=== PATIENT | female | born 1940 | race Caucasian/White ===

== ENCOUNTER 2017-04-15 11:12 | Inpatient (IN) ==
--- NOTE | 2017-04-15 13:08 | Diag Imaging Result Doc PS360 ---
EXAM: ABDOMEN/PELVIS W/WO CONTRAST HISTORY: Female pelvic inflammatory disease, unspecified TECHNIQUE: CT of the abdomen and pelvis with and without intravenous contrast. COMMENT: Minimal atelectatic or fibrotic changes are present in the right lower lobe. There are no previous studies available for comparison. Multiple lucent lesions are present throughout the liver which are cystic in appearance. This may be a result of autosomal dominant polycystic disease. There is also a cyst in the upper pole of the right kidney measuring 3.4 cm in diameter. There is no evidence of nephrolithiasis. No cholelithiasis is present. There is scattered atherosclerotic calcification throughout the abdominal aorta and its branches. The mesenteric and renal arteries are patent. There is an accessory left renal artery. The spleen and adrenal glands are normal in appearance. The pancreas is unremarkable. There is a prominent left hemiazygos vein. There is no evidence of bowel obstruction. There is a fair amount of stool throughout the colon. CT of the pelvis with and without intravenous contrast: There is a multilobulated ring-enhancing fluid collection in the cul-de-sac. This measures over 8.3 cm in transverse dimension and has an internal CT density of over 25 Hounsfield units. There is diverticulosis in the sigmoid colon. There is a small amount of free fluid present outside of the loculated fluid collections. The ovaries are not enlarged. The urinary bladder is not distended. There is no evidence of significant adenopathy. There is degenerative change in the symphysis pubis. There are subchondral cysts in the right femoral head. There are degenerative disc and facet changes in the lumbar spine. There is an apparent hemangioma on the left side of L4. IMPRESSION: Pelvic abscess. This is directly adjacent to the rectum and the vaginal cuff. Given the history, it is more likely this is a result of the recent hysterectomy rather than diverticulitis. Electronically signed by Akhil Sharpe 04/15/2017 1:05 PM
--- NOTE | 2017-04-15 16:20 | CONSULTATION ---
DATE OF CONSULTATION: 04/15/2017 CONCLUSION: The patient has a pelvic abscess following a hysterectomy and vaginal closure performed by Dr. Gutierrez. RECOMMENDATIONS: I agree with treating the patient with Zosyn. The patient also already has a PICC in her arm. I have consulted Dr. Dom Alexander to see the patient regarding treatment of the abscess. DISCUSSION: The patient had surgery performed approximately a week ago, it may have been 1-2 weeks. She had fever and on CT scan she was found to have a pelvic abscess. The patient had a hysterectomy and vaginal closure performed. The patient has been on IV Zosyn and vancomycin provided by [facility]. PAST MEDICAL HISTORY/REVIEW OF SYSTEMS: Eyes and Ears: Denies difficulty hearing or seeing. Neck: No stiffness. Respiratory: No cough or shortness of breath. Cardiac: No chest pain or palpitations. : The patient is incontinent of urine. She is not complaining of dysuria or flank pain. GI: Patient has been having some loose stools since she started antibiotics but they are not watery and not numerous. She is not having nausea or vomiting. Endocrine: Patient is not a diabetic and she does not have thyroid disease. Hematologic: No history of anemia or bleeding tendency. Bones, joints, muscles: No joint aching or myalgia. Integument: No rash. POLISHER IMPLANT HISTORY: She is a 3, para 2, AB 1. PREVIOUS HOSPITALIZATIONS AND OPERATIONS: She has had labor and deliveries, a miscarriage, a hysterectomy, vaginal closure, left total knee arthroplasty, bilateral arm fractures, and an appendectomy. MEDICAL DISEASES: Positive for hypertension and urinary incontinence. INFECTIOUS DISEASE HISTORY: Positive for UTI. FAMILY HISTORY: Positive for hypertension and stroke. SOCIAL HISTORY: The patient lives in [place]. She is . ALLERGIES: She has no known drug allergies. She does not have any pets at home. MEDICATIONS AT HOME: Are not yet listed. PHYSICAL EXAMINATION: Vital Signs: Temperature is 99.3 degrees, pulse 103, respirations 16, blood pressure 164/57. O2 saturation was 98%. Patient weighs 132 pounds. General: This is a healthy-appearing, elderly female in no acute distress. Head, eyes, ears, nose, and throat: She can hear my spoken words and see near objects. No drainage noted from the nose or ears. Neck: No meningismus. Thorax: No increased AP diameter. Lungs: Clear to auscultation. Cardiovascular: Heart rate is regular. Peripheral pulses are palpable. Patient does not have any leg edema. Abdomen: Soft and nontender. No flank tenderness. Pelvic exam: Manually I just palpated the perineum, vaginal and perirectal area. There was no swelling or tenderness. Neurologic: Patient is alert. She moved all of her extremities. There is no tremor. Her sensation is intact to touch. Her memory, as regarding her medical history, is intact. Integument: No rash noted. Thank you for the consult. cc: MD Kev Maria MD Kari M. Kubik, MD
[2017-04-15 17:05] LABS: MANUAL DIFF NEEDED? NO
[2017-04-15 17:08] LABS: BASO% 0.3 % (0.0-0.8); EOS# 0.08 X1000 (0.0-0.7); EOS% 0.8 % (0.0-10.0); HEMATOCRIT 30.6 % (37.0-47.0); HEMOGLOBIN 9.6 g/dL (12.0-16.0); IMM GRAN# 0.04 X1000 (0.0-0.04); IMM GRAN% 0.4 % (0.0-0.5); LYMPH% 12.5 % (20.5-51.1); MCH 25.1 PG (27-31); MCHC 31.4 g/dL (33-37); MCV 80.1 FL (81-99); MONO# 0.67 X1000 (0.11-0.59); MONO% 6.5 % (1.7-9.3); MPV 10.4 FL (7.4-10.4); NEUT% 79.5 % (42.2-75.2); PLT 380 X1000 (130-400); RBC 3.82 XMIL (4.2-5.4)
[2017-04-15 17:14] LABS: INR 1.04
[2017-04-15 17:30] LABS: AGAP 14; ALBUMIN 3.3 g/dL (3.5-5.0); ALKALINE PHOSPHATASE 78 U/L (32-104); BUN 11 mg/dL (8-22); CALCIUM 8.7 mg/dL (8.8-10.2); CHLORIDE 95 mmol/L (98-107); COSMO 266; GOT 37 U/L (10-30); GPT 34 U/L (10-36); POTASSIUM 3.8 mmol/L (3.5-5.1); SODIUM 133 mmol/L (136-145); TCO2 24 mmol/L (25-35); TOTAL BILIRUBIN 0.23 mg/dL (0.20-1.00); TOTAL PROTEIN 6.9 g/dL (6.3-8.3)
--- NOTE | 2017-04-15 17:33 | CONSULTATION ---
DATE OF CONSULTATION: 04/15/2017 REQUESTING PHYSICIAN: Dr. Pastor Castillo. Consult concerning pelvic abscess. HISTORY OF PRESENT ILLNESS: A 76-year-old female who had a recent transvaginal hysterectomy done by Dr. Gutierrez. She developed what appears to be an abscess that was noted [address] scan after developing fevers at night. She had been started on antibiotics by Dr. Gutierrez but no drainage was performed on the abscess. She has continued to have issues with fever and was re-seen and re-evaluate today with a repeat CT scan that showed an increased size of the abscess. She was seen by Dr. Pastor Castillo in his office and sent to the hospital for admission. I was asked to evaluate the patient. The patient denies any abdominal pain at this time but does report fevers. Otherwise she has no major issues. PAST MEDICAL HISTORY: Includes hypertension, urinary incontinence. PAST SURGICAL HISTORY: Includes hysterectomy, transvaginal, left knee arthroplasty, appendectomy through an open incision. MEDICATIONS: Patient is currently on antibiotics. ALLERGIES: None. SOCIAL HISTORY: Lives in [place]. FAMILY HISTORY: Reviewed and positive for hypertension and stroke. REVIEW OF SYSTEMS: A full 10 point review of systems obtained, negative except as specified in HPI. PHYSICAL EXAMINATION: Vital Signs: Patient is currently with a fever of 100.6. Otherwise her vital signs are stable. General: No acute distress. Appears uncomfortable, female, looks stated age. HEENT: Normocephalic, atraumatic. Pupils equal, round, reactive to light. Mucous membranes moist. Oropharynx benign. Neck: Supple. Trachea midline. Cardiovascular: Regular rate and rhythm. Lungs: Grossly clear. Abdomen: Soft, nontender, nondistended. Extremities: Moves all extremities. Neurologic: Grossly intact. Skin: No signs of jaundice. Vascular: All extremities perfused. LABORATORY: None currently but currently pending. CT scan independently reviewed and reviewed with Dr. Sharpe with Radiology. There is a large abscess noted above her vaginal cuff next to her bladder and her rectum. ASSESSMENT AND PLAN: A 76-year-old female with a pelvic abscess. Pelvic abscess. At this time, discussed with the patient options. She does not appear septic at this time, so we will plan on laparoscopic washout in the morning. We will leave a drain. We will obtain cultures. Patient is on antibiotics. I suspect given the duration of her antibiotics this might be a sterile abscess but she is having fevers so this does need to be drained. She is also having frequency with urination which I suspect is related to the bladder being irritated by this abscess. This was all discussed with the patient. I discussed the risks, benefits, alternatives. We will plan again for surgery in the morning. cc: MD Kev Mendoza MD
[2017-04-15] MEDS: ZOSYN 3.375 GM/NS 3.375 GM/50 ML IVPB IV SCH ×2 (18:42→23:27)
[2017-04-15] MEDS ORDERED: ZOFRAN IV PRN (20:07)
[2017-04-15] MEDS: NS 1,000 ML IV SCH (20:55)
[2017-04-15] MEDS: TYLENOL PO PRN (20:55)
--- NOTE | 2017-04-15 20:58 | HISTORY AND PHYSICAL ---
PRIMARY CARE PHYSICIAN: Dr. Debbie Conroy. CHIEF COMPLAINT: Fever and pelvic abscess. HISTORY OF PRESENTING ILLNESS: A 76-year-old female with a history of hypertension, who apparently underwent hysterectomy on March 29 and shortly after that she developed fevers. She called her record cutter who had referred her to [facility] where she was admitted and put on IV antibiotics. The patient states that she went home. She has continued to have spiked fevers, and finely she made an appointment to see Infectious Disease doctor, Dr. Castillo who ordered a CAT scan. CAT scan apparently revealed a pelvic abscess and subsequently the patient was told to come to the hospital for admission. At the time of my examination, patient had denied any nausea, vomiting, diarrhea, chest pain, shortness of breath, hemoptysis, melena or weight changes. She does complain of having fevers and not feeling well. PAST MEDICAL HISTORY: Hypertension. PAST SURGICAL HISTORY: Hysterectomy. Left knee replacement. Bilateral arm surgery. Appendectomy. Cataract surgery. ALLERGIES: No known drug allergies. CURRENT MEDICATIONS: As listed in MAR. SOCIAL HISTORY: She denies any history of smoking, alcohol or illicit drug use. She is fairly independent. FAMILY HISTORY: No history of coronary artery disease. REVIEW OF SYSTEMS: Twelve point review of systems is as listed in HPI. Other systems negative. PHYSICAL EXAMINATION: GENERAL: Cooperative, friendly female. She is resting comfortably now. VITAL SIGNS: Temperature 100.6 degrees, pulse 89, respirations 16, blood pressure 130/49. HEENT: Atraumatic, normocephalic. Extraocular movements intact. PERRLA. NECK: Supple. CHEST: Clear to auscultation. CARDIOVASCULAR: Regular rate and rhythm. ABDOMEN: Soft, nontender. Positive bowel sounds. EXTREMITIES: No edema. NEUROLOGIC: She is awake, alert, oriented x3. : No bladder distention. SKIN: Warm. LABORATORIES: WBC 10.37, hemoglobin 9.6, hematocrit 30.6, platelets is 380,000. Sodium 133, potassium 3.8, chloride 95, CO2 is 24, BUN is 11, creatinine 0.7, glucose is 98. ASSESSMENT: This is a 76-year-old female with a history of hypertension, apparently had underwent a hysterectomy and subsequently had developed fevers. She was evaluated by Infectious Disease who ordered computed tomography scan which showed that patient had a pelvic abscess. Subsequently patient will need hospitalization for surgical evaluation. 1. Pelvic abscess. 2. Hypertension. PLAN: 1. We will admit patient to medical floor with telemetry. 2. We will keep patient nothing per oral, give intravenous fluids, pain control and Tylenol p.r.n. fever. 3. We will check blood cultures. 4. We will start patient on intravenous antibiotics. 5. Consult General Surgery who apparently has already seen patient. 6. We will monitor blood pressure. Resume antihypertensive agent. 7. Put patient on deep venous thrombosis prophylaxis with Sequential Compression Devices. 8. We will continue to follow and reassess. cc: MD Kev He MD
[2017-04-15 22:40] LABS: URINE CULTURE NEEDED? NO; URINE MICRO REVIEW NEEDED? NO; URINE SOURCE CLEAN CATCH
[2017-04-15 22:43] LABS: BILIRUBIN URINE NEGATIVE (NEGATIVE); BLOOD URINE NEGATIVE (NEGATIVE); COLOR STRAW; GLUCOSE URINE NEGATIVE (NEGATIVE); LEUKOCYTES URINE NEGATIVE (NEGATIVE); NITRITE URINE NEGATIVE (NEGATIVE); PROTEIN URINE NEGATIVE (NEGATIVE); SP GRAVITY URINE 1.009; TURBIDITY URINE CLEAR (CLEAR); UROBILINOGEN URINE NORMAL (NORMAL)
[2017-04-15 22:45] LABS: UR EPITHELIAL CELLS <10 /HPF (<10); URINE BACTERIA NEGATIVE /HPF; URINE RBC <10 /HPF (<10); URINE WBC <10 /HPF (<10)
[2017-04-16] MEDS: ZOSYN 3.375 GM/NS 3.375 GM/50 ML IVPB IV SCH ×2 (05:19→12:31)
--- NOTE | 2017-04-16 06:28 | PROGRESS NOTE ---
DATE: 04/16/2017 SUBJECTIVE: Patient doing okay. No major issues. OBJECTIVE: Vital Signs: Patient's temperature max of 100.6; otherwise her vital signs have been stable. General: No acute distress. Cardiovascular: Regular rate and rhythm. Lungs: Grossly clear. Abdomen: Soft, nontender, nondistended. LABORATORY: None this morning. ASSESSMENT AND PLAN: A 76-year-old female with pelvic abscess. Pelvic abscess: At this time, we will plan on surgical intervention with wash out this morning. I did discuss her case with Dr. Gutierrez over the phone. All questions were answered for the patient. We will plan for later today. cc: MD Kev Mendoza MD
[2017-04-16] MEDS ORDERED: VERSED ONE (09:38)
[2017-04-16] MEDS ORDERED: MARCAINE 0.25% PF/EPI 1:200,000 ONE (09:56)
[2017-04-16] MEDS ORDERED: XYLOCAINE 1%/EPI 1:100,000 ONE (09:56)
[2017-04-16] MEDS ORDERED: FENTANYL ONE (11:16)
[2017-04-16] MEDS ORDERED: DIPRIVAN 1% ONE (11:16)
[2017-04-16] MEDS: MORPHINE ONE ×2 (11:29→11:45)
--- NOTE | 2017-04-16 11:29 | OPERATIVE NOTE ---
PROCEDURE DATE: 04/16/2017 PREOPERATIVE DIAGNOSIS: Pelvic abscess. POSTOPERATIVE DIAGNOSIS: Pelvic abscess. PROCEDURE: Laparoscopic abdominal washout with placement of abdominal drain. SURGEON: Dr. Dom Alexander. POLYSOMNOGRAPHIC TECHNOLOGIST: None. ANESTHESIA: General endotracheal. INTRAOPERATIVE FINDINGS: There was 50 mL of purulence noted down in the pelvis posterior to the bladder. There was a dense rind associated with this abscess and very friable tissue down in the pelvis. COMPLICATIONS: None at time of dictation. ESTIMATED BLOOD LOSS: 5 mL. SPECIMENS REMOVED: Culture of the purulence. DRAINS: A 19-Niuean drain left in the abscess cavity. BRIEF HISTORY: The patient is a 76-year-old female, status post transvaginal hysterectomy. She had a postoperative course that was complicated by an abscess and was treated initially with antibiotics and did not improve. Therefore, she was admitted for surgical opinion and it was felt that she would benefit from a drainage. I felt that the safest approach would be a laparoscopic approach. Risks, benefits, and alternatives were discussed. All questions were answered. DESCRIPTION OF PROCEDURE: After informed consent was obtained, patient brought to the operative theatre and placed on the operating table in supine position. General endotracheal anesthesia was then performed without complication. A formal time-out was then performed, confirming patient, date, and procedure. All were in agreement. At that time, attention was given to the abdomen. An infraumbilical incision was made, through which, using Optiview technique, we were able to insert a 5 mm trocar connected to insufflation and pneumoperitoneum was achieved. Under direct visualization, we placed 2 more trocars, both 5 mm, 1 in the left lower quadrant and 1 in the right lower quadrant. Using these, there were some adhesions from a previous appendectomy that were taken down sharply. We then encountered the pelvis. We placed the patient in steep Trendelenburg position and elevated the bladder. We then were able to puncture gently into a rind and were able to encounter purulence, which we suctioned and sent for culture. We broke up all loculations that we were able to do safely bluntly in the area. Given the dense inflammatory process and her recent surgery, I did not get too aggressive in breaking down the rind itself for fear of potentially injuring surrounding tissues that would not be able to be well visualized, given the inflammation. Once we irrigated the area copiously until the suction fluid was clear, we elected to place a drain, which we placed in the most lateral trocar site on the left side, placed it into the abscess cavity and secured it in place, then removed all trocars and disconnected insufflation. The patient tolerated the procedure well and had all her skin incisions closed with 4-0 Monocryl. Postoperatively, she will be managed by the Infectious Disease. cc: Dom Alexander MD
--- NOTE | 2017-04-16 13:10 | PROGRESS NOTE ---
DATE: 04/16/2017 Today Ms. Ocasio referred to be doing fine. Still continues to have some discomfort. She is scheduled for surgery today. OBJECTIVE: Vital Signs: Blood pressure is 142/62, pulse of 81, respirations 20, temperature is 98.5 degrees. General: Ms. Ocasio is a 76-year-old female. She was in bed and did not seem to be in any remarkable distress. HEENT: Mucosa is pink and moist. Anicteric. Acyanotic. Neck: Supple. Chest: Clear. Cardiovascular: Regular rate and rhythm. No murmurs, no rubs. No gallops. Abdomen: Soft. Mildly tender in the lower abdomen. SUPERVISOR BREW HOUSE: Patient was alert and oriented x4. No focal neurological deficit. LABORATORY DATA: WBC 10.37, hemoglobin 9.6, platelet count of 380,000. Chemistry is reviewed. Sodium is 133, potassium is 3.8, chloride is 95. CURRENT MEDICATIONS INCLUDE: 1. [place] p.r.n. 2. Amlodipine 10 mg daily. 3. Lipitor 40 mg p.o. at bedtime. 4. Cozaar 25 mg daily. 5. Zofran 3.375 g q.6. 6. Normal saline at 80 mL/h. ASSESSMENT: 1. Pelvic abscess status post recent hysterectomy. Patient is pending laparoscopic evaluation and possible drainage and washout. 2. Hypertension. Will get more aggressive in the control once after the surgery. 3. Dyslipidemia. Patient is on atorvastatin. 4. Mild hyponatremia likely due to dehydration. We will continue with the IV fluids. 5. Normocytic anemia. I think this has slightly worsened because of hydration. Will however do her iron studies for tomorrow since MCV is on the borderline low. cc: Kev Watt MD
[2017-04-16] MEDS ORDERED: NEOSTIGMINE ONE (13:13)
[2017-04-16] MEDS ORDERED: ZOFRAN ONE (13:13)
[2017-04-16] MEDS ORDERED: ROBINUL ONE (13:13)
[2017-04-16] MEDS ORDERED: LR 2,000 ML ONE (13:14)
[2017-04-16] MEDS ORDERED: NIMBEX 2 MG DOSE ONE (13:14)
[2017-04-16] MEDS ORDERED: DECADRON ONE (13:14)
[2017-04-16] MEDS ORDERED: QUELICIN (DOSE) ONE (13:14)
[2017-04-16] MEDS ORDERED: XYLOCAINE-MPF 2% ONE (13:14)
[2017-04-16] MEDS ORDERED: VANCOMYCIN IV PER PHARMACY MISC SCH (13:45)
[2017-04-16 14:16] LABS: INR 1.03; PROTIME 10.8 Seconds (9.2-11.7)
--- NOTE | 2017-04-16 14:22 | PROGRESS NOTE ---
DATE: 04/16/2017 PRESENT ILLNESS: The patient has a pelvic abscess following hysterectomy and vaginal closure performed by Dr. Gutierrez. MEDICATIONS: The patient has been receiving Zosyn. PHYSICAL EXAMINATION: Vital Signs: Temperature is 98 degrees, pulse 78, respirations 22, blood pressure 136/55. General: This is a somewhat ill-appearing, elderly female. She is in no acute distress. Lungs: Clear to auscultation. Cardiovascular: Regular heart rate. Abdomen: Soft and nontender. A drain is in place. LAB AND X-RAY: The patient's CBC shows a white count of 10,370, hemoglobin 9.6, and platelet count 380,000. Creatinine 0.7. GFR is greater than 60. Gram stain of the fluid obtained after putting a drain in it percutaneously has gram positive cocci. The patient had as mentioned above laparoscopic washout and drain has been placed in the pelvic abscess. PLAN: My plan is to change the patient's antibiotic from Zosyn to vancomycin pending culture results. COMORBIDITY: She recently had surgery and she is elderly. cc: Pastor Castillo MD
[2017-04-16] MEDS ORDERED: NS 250 ML ONE (14:38)
[2017-04-16] MEDS ORDERED: VANCOMYCIN 1,500 MG in NS 250 ML IV ONE (15:00)
[2017-04-16] MEDS: NS 1,000 ML IV SCH (17:29)
[2017-04-16] MEDS: NORVASC PO SCH (17:38)
[2017-04-16] MEDS: COZAAR PO SCH (17:38)
[2017-04-16] MEDS: NORCO-10 PO PRN (19:05)
[2017-04-16] MEDS: LIPITOR PO SCH ×2 (19:46→21:59)
[2017-04-16] MEDS: KLOR-CON PO SCH ×2 (19:46→21:59)
[2017-04-16] MEDS: PERIDEX MT SCH ×2 (19:46→21:59)
[2017-04-17 06:18] LABS: IRON SATURATION 10 %; TIBC 238 ug/dL; TOTAL IRON 23 ug/dL (49-151); UNBOUND IRON 215 ug/dL (112-346)
[2017-04-17 06:26] LABS: VITAMIN D 25 HYDROXY 32.7 NG/DL
[2017-04-17] MEDS: NORVASC PO SCH (10:44)
[2017-04-17] MEDS: KLOR-CON PO SCH ×2 (10:44→20:05)
[2017-04-17] MEDS: COZAAR PO SCH (10:44)
[2017-04-17] MEDS: PERIDEX MT SCH ×2 (10:44→20:05)
[2017-04-17] MEDS: NS 1,000 ML IV SCH ×2 (10:47→10:49)
[2017-04-17] MEDS: NORCO-10 PO PRN ×2 (11:08→17:20)
--- NOTE | 2017-04-17 15:00 | PROGRESS NOTE ---
DATE: 04/17/2017 Today Ms. Ocasio refers to be doing a lot better. She is day 1 postop. OBJECTIVE: Vital signs: Blood pressure is 124/65, pulse of 79, respirations 16 , temperature is 98.5 degrees. General exam: Ms. Ocasio is a 76-year-old, female. She is in bed, does not seems to be in any remarkable distress except where she had the surgery. HEENT: Mucosa is pink and moist. Anicteric. Acyanotic. Neck: Supple. Chest: Good air entry bilateral. Cardiovascular: Regular rate and rhythm. There is about 2-3/6 murmur radiating to the carotid. Abdomen: Soft, mildly distended in the lower abdomen. There is a NIKKI drain in place. Bowel sounds are present. Extremities: No pedal edema. LIVING NURSE: Patient is alert and oriented x4. There is no focal neurological deficit. LABORATORY DATA: There is no CBC and no CMP today. Iron studies show a ferritin level of 65, folate of 14.4. Percent saturation is 10 and iron is 23. Antibiotic was changed yesterday from Zosyn to vancomycin. Abdominal culture is growing gram-positive cocci. We are still pending the ID and sensitivity. ASSESSMENT: 1. Pelvic abscess after recent hysterectomy. Patient had laparoscopic lavage by Surgery yesterday. Today is day 1 post lavage. She seems to be doing a whole lot better. So far, the culture shows gram-positive cocci. Patient is on vancomycin. We will continue following the ID and sensitivity. 2. Hypertension. 3. Dyslipidemia. 4. Iron deficiency. We will replace this once the infection is completely under control. We will repeat patient's labs for tomorrow morning and follow on her CBC and her electrolytes. The patient was evaluated today also by Surgery. Has been started on regular diet. cc: MD ASAD Crowe
[2017-04-17] MEDS: TYLENOL PO PRN (20:05)
[2017-04-17] MEDS: LIPITOR PO SCH (20:05)
[2017-04-18] MEDS: NS 1,000 ML IV SCH ×3 (02:56→22:20)
[2017-04-18] MEDS ORDERED: VANCOMYCIN 1,200 MG in NS 250 ML IV SCH (03:00)
[2017-04-18 05:19] LABS: MANUAL DIFF NEEDED? NO
[2017-04-18 05:29] LABS: BASO% 0.1 % (0.0-0.8); EOS% 0.9 % (0.0-10.0); HEMATOCRIT 31.3 % (37.0-47.0); HEMOGLOBIN 9.7 g/dL (12.0-16.0); IMM GRAN# 0.04 X1000 (0.0-0.04); IMM GRAN% 0.3 % (0.0-0.5); LYMPH# 2.29 X1000 (1.2-3.4); MCH 24.9 PG (27-31); MCV 80.3 FL (81-99); MONO# 0.47 X1000 (0.11-0.59); MONO% 4.1 % (1.7-9.3); MPV 10.5 FL (7.4-10.4); NEUT% 74.6 % (42.2-75.2); PLT 341 X1000 (130-400)
[2017-04-18 05:53] LABS: AGAP 11; BUN 12 mg/dL (8-22); CALCIUM 7.9 mg/dL (8.8-10.2); CHLORIDE 104 mmol/L (98-107); COSMO 275; POTASSIUM 4.3 mmol/L (3.5-5.1); SODIUM 138 mmol/L (136-145); TCO2 23 mmol/L (25-35)
[2017-04-18] MEDS: PERIDEX MT SCH ×2 (10:04→21:30)
[2017-04-18] MEDS: KLOR-CON PO SCH ×2 (10:04→21:30)
[2017-04-18] MEDS: COZAAR PO SCH (10:04)
[2017-04-18] MEDS: NORVASC PO SCH (10:04)
--- NOTE | 2017-04-18 16:55 | PROGRESS NOTE ---
DATE: 04/18/2017 SUBJECTIVE: Today Ms. Luciano referred to be doing fine. Still continues to have some mild lower abdominal discomfort. OBJECTIVE: Vital signs: Blood pressure is 136/54, pulse of 88, respirations 16 , temperature 98.8 degrees. General: Ms. Ocasio is a 76-year-old female. She was in bed. Not seemingly distressed. HEENT: Mucosa is pink and moist. Anicteric and acyanotic. Neck: Supple. Chest: Good air entry bilateral. No crepitations. No rhonchi. Cardiovascular : Regular rate and rhythm. There is about 2/6 murmur radiating to the carotid. Abdomen: Soft, mildly tender in the lower abdomen. Bowel sounds are present. Extremities: No pedal edema. SIGNALING PROJECT ENGINEER: Patient is alert and oriented x4. There is no focal neurological deficit. LABORATORY DATA: WBC is 10.47, hemoglobin is 9.7, platelet count of 341,000. Chemistries reviewed, completely unremarkable. Calcium is 7.6, folate is normal. Vitamin D is normal. Iron is 65, which is remarkable. The microbiology shows Staph methicillin-resistant Staphylococcus aureus which is sensitive to the vancomycin which patient is currently on. ASSESSMENT: 1. Methicillin-resistant Staphylococcus aureus pelvic abscess after recent hysterectomy. Patient is status post laparoscopic lavage by Surgery. Today is day 2 postop. We are going to continue with the intravenous vancomycin for now. Patient is being followed by Infectious Disease and General Surgery as well. 2. Hypertension. 3. Dyslipidemia. 4. Iron deficiency anemia. We will replace this once patient abdomen infection is completely controlled. 5. Mild hyponatremia, resolved. PLAN: 1. In general, I think Ms. Luciano is doing a whole lot better. I think there is a plan to continue with the current IV antibiotic as per Infectious Disease. We will be waiting for them to review her again and we will arrange for the home IV antibiotics. 2. I think if the IV antibiotics are arranged for tomorrow, we can discharge her. cc: Kev Watt MD [facility]
[2017-04-18] MEDS: TYLENOL PO PRN (17:22)
[2017-04-18] MEDS: LIPITOR PO SCH (21:30)
[2017-04-19 05:51] LABS: MANUAL DIFF NEEDED? NO
[2017-04-19 05:54] LABS: BASO% 0.4 % (0.0-0.8); EOS# 0.06 X1000 (0.0-0.7); EOS% 0.8 % (0.0-10.0); HEMATOCRIT 31.6 % (37.0-47.0); HEMOGLOBIN 9.9 g/dL (12.0-16.0); IMM GRAN# 0.04 X1000 (0.0-0.04); IMM GRAN% 0.5 % (0.0-0.5); LYMPH# 1.65 X1000 (1.2-3.4); MCH 24.9 PG (27-31); MCHC 31.3 g/dL (33-37); MCV 79.6 FL (81-99); MONO# 0.71 X1000 (0.11-0.59); MPV 10.6 FL (7.4-10.4); NEUT% 68.3 % (42.2-75.2); PLT 305 X1000 (130-400); RBC 3.97 XMIL (4.2-5.4)
[2017-04-19] MEDS: KLOR-CON PO SCH ×2 (08:56→20:42)
[2017-04-19] MEDS: NORVASC PO SCH (08:56)
[2017-04-19] MEDS: LOVENOX SUBQ SCH (08:56)
[2017-04-19] MEDS: COZAAR PO SCH (08:56)
[2017-04-19] MEDS: PERIDEX MT SCH ×2 (08:56→20:39)
--- NOTE | 2017-04-19 09:36 | PROGRESS NOTE ---
DATE: 04/19/2017 SUBJECTIVE: Ms. Kelly Ocasio is a 76-year-old white female who underwent laparoscopic drainage of a pelvic abscess per Dr. Alexander. OBJECTIVE: She still has a Darnell drain in place. It is draining mostly serous fluid. Clinically, she feels better. Her white blood cell count was trending towards normal. She is still on IV antibiotics. She is tolerating a diet. PLAN: Plan is to continue IV antibiotics. 5th. cc: Aleksandra Clemons MD
--- NOTE | 2017-04-19 10:38 | PROGRESS NOTE ---
DATE: 04/19/2017 PRESENT ILLNESS: The patient had a pelvic abscess following hysterectomy and vaginal closure. Culture from the abscess is growing methicillin-resistant Staphylococcus aureus. MEDICATIONS: The patient is receiving vancomycin as a single agent. PHYSICAL EXAMINATION: Vital Signs: The temperature was 102; now it is 99.3. Pulse is 97, respirations 16, blood pressure 139/58. Generally, this is a healthy-appearing , elderly female who is in no acute distress. Lungs clear to auscultation. Cardiovascular: Regular heart rate. Abdomen is soft and only minimally tender. A drain is in place. Neurologic: The patient is alert. She can move her extremities. LABORATORY DATA AND X-RAY: The patient's culture from the abscess grew methicillin-resistant Staphylococcus aureus. The patient's CBC shows a white count of 7850, hemoglobin 9.9, and platelet count 305,000. Creatinine was 0.6. GFR is greater than 60. ASSESSMENT AND PLAN: The patient did spike a fever yesterday up to 102 degrees which certainly is worrisome, however, her white count today is normal and it had been elevated. Hopefully, her abscess is draining and soon it should be cleared up. If the patient has another temperature spike, I plan to repeat the CT scan to see exactly what the status of the abscess is. The patient's comorbidity is that she is elderly and she recently had pelvic surgery. My plan is to continue vancomycin and until the abscess appears to have cleared on CT scan. I will leave to Dr. Alexander the management of the patient's drain. It still is draining quite a bit of fluid. cc: Pastor Castillo MD MTDD
--- NOTE | 2017-04-19 14:06 | PROGRESS NOTE ---
DATE: 04/19/2017 SUBJECTIVE: The patient is resting comfortably in bed. She did have a fever of 101.8 last night. The patient is tolerating her diet. OBJECTIVE: Vital Signs: Temperature is 99.3 degrees, blood pressure 139/58, heart rate 97, respirations 18, O2 saturation 95% on room air. General: This is an elderly female, lying in bed, in no acute distress. Head: Normocephalic, atraumatic. Heart: S1, S2. Normal. Regular rate and rhythm. Lungs: Clear to auscultation bilaterally. No wheezes. No rales. No rhonchi. Abdomen: Positive bowel sounds. Nontender, nondistended. Extremities: No edema. No calf tenderness. Neurologic: The patient is alert and oriented x3. LABS: White blood cell count 7.8, hemoglobin 9.9, hematocrit 31, platelets 305, 000. ASSESSMENT AND PLAN: 1. Methicillin-resistant Staphylococcus aureus pelvic abscess status post laparoscopic lavage. Continue on the current IV antibiotic regimen as directed by Dr. Castillo. General surgery is following. 2. Hypertension. Controlled. 3. Dyslipidemia. Aware. 4. Iron deficiency anemia. Aware. cc: Matilde Narayan MD MTDD
[2017-04-19] MEDS ORDERED: VANCOMYCIN 1,200 MG in NS 250 ML IV SCH ×2 (15:00→16:00)
[2017-04-19] MEDS: VANCOMYCIN 1,200 MG in NS 250 ML IV SCH (18:03)
[2017-04-19] MEDS: LIPITOR PO SCH (20:39)
[2017-04-20 03:35] VITALS: BP 130/48
[2017-04-20 05:28] LABS: MANUAL DIFF NEEDED? NO
[2017-04-20 05:40] LABS: BASO% 0.1 % (0.0-0.8); EOS# 0.04 X1000 (0.0-0.7); EOS% 0.5 % (0.0-10.0); HEMATOCRIT 28.6 % (37.0-47.0); IMM GRAN# 0.03 X1000 (0.0-0.04); IMM GRAN% 0.4 % (0.0-0.5); LYMPH# 1.12 X1000 (1.2-3.4); LYMPH% 15.3 % (20.5-51.1); MCH 24.9 PG (27-31); MCHC 31.5 g/dL (33-37); MCV 79.2 FL (81-99); MONO# 0.38 X1000 (0.11-0.59); MONO% 5.2 % (1.7-9.3); MPV 10.8 FL (7.4-10.4); NEUT% 78.5 % (42.2-75.2); PLT 300 X1000 (130-400); RBC 3.61 XMIL (4.2-5.4)
[2017-04-20 06:30] LABS: AGAP 12; BUN 7 mg/dL (8-22); CALCIUM 7.3 mg/dL (8.8-10.2); CHLORIDE 100 mmol/L (98-107); COSMO 268; SODIUM 135 mmol/L (136-145); TCO2 23 mmol/L (25-35)
--- NOTE | 2017-04-20 07:06 | PROGRESS NOTE ---
DATE: 04/20/2017 SUBJECTIVE: Patient doing okay. No major issues. OBJECTIVE: Vital Signs: Patient is currently afebrile. Her temperature is 99.3, the remainder of her vital signs have been stable. NIKKI drain in place and has only 10 recorded last 24 hours of a serosanguineous. General: No acute distress. Cardiovascular: Regular rate and rhythm. Lungs: Grossly clear. Abdomen: Soft, nontender, nondistended. NIKKI drain is noted above. LABORATORY: White blood cell count is 7, hematocrit 28. Microbiology: The abdominal abscess is growing Staph aureus that is potentially sensitive to Bactrim. ASSESSMENT AND PLAN: A 76-year-old female, status post laparoscopic abdominal washout. Status post laparoscopic abdominal washout. At this time, we will get a CT scan to evaluate how much of the abscess has been drained. If it has almost been completely drained, may remove the NIKKI drain. We will defer antibiotics to infectious disease. cc: Dom Alexander MD
--- NOTE | 2017-04-20 07:39 | PROGRESS NOTE ---
DATE: 04/20/2017 PRESENT ILLNESS: The patient has a pelvic abscess following hysterectomy and vaginal closure performed by Dr. Gutierrez. MEDICATIONS: The patient is on vancomycin. This was started on 04/16/2017. Therefore, the patient has 4 days of treatment with vancomycin. A drain has been put in the pelvic abscess. PHYSICAL EXAMINATION: Vital Signs: Temperature is 99.3 degrees, pulse 87, respirations 20, blood pressure 130/48. Generally: This is a fairly healthy-appearing, elderly female. She is in no acute distress. Lungs: Clear to auscultation. Cardiovascular: Regular heart rate. Abdomen: Soft. Not tender. A drain is in place. Neurologic: She is alert and she can move her extremities. There is no tremor. LAB AND X-RAY: The patient's CBC today shows a white count of 7300, hemoglobin 9, and platelet count 300,000. Creatinine 0.5. GFR is greater than 60. Blood cultures were drawn yesterday and they are pending. ASSESSMENT AND PLAN: I plan to continue with vancomycin as a single agent. The patient is going to have a CT scan today and possibly depending on the size of the abscess, may be going home today. I put a consult in for [facility], who previously was seeing the patient to continue seeing the patient when she goes home today. COMORBIDITIES: Include recent surgery and she is elderly. cc: Pastor Castillo MD
[2017-04-20] MEDS: PERIDEX MT SCH (10:00)
[2017-04-20] MEDS: NORVASC PO SCH (10:00)
[2017-04-20] MEDS: KLOR-CON PO SCH (10:00)
[2017-04-20] MEDS: LOVENOX SUBQ SCH (10:00)
[2017-04-20] MEDS: COZAAR PO SCH (10:00)
--- NOTE | 2017-04-20 11:36 | Diag Imaging Result Doc PS360 ---
EXAM: PELVIS W/O CONTRAST INDICATION: pelvic abscess COMPARISON: 04/15/2017 FINDINGS: There has been interval placement of a percutaneous drainage catheter in the known multiloculated pelvic abscess. The abscess has decreased in size since the previous study. It measures approximately 6.5 x 3.6 cm axially (8.4 x 5.6 cm previously, remeasured). There is inflammatory stranding surrounding the abscess similar to the previous study. No definite new abscess is identified given the limitations of an unenhanced study. No free abdominal gas is appreciated. Otherwise, the pelvis is essentially stable as compared to the previous study. There are a few droplets of subcutaneous gas overlying the right lower quadrant anteriorly that are probably postprocedural. IMPRESSION: Interval placement of percutaneous drainage catheter in the known pelvic abscess with decrease in size since the previous study. Electronically signed by Pro Laird 04/20/2017 11:34 AM
--- NOTE | 2017-04-20 14:30 | PROGRESS NOTE ---
DATE: 04/20/2017 ADDENDUM REPORT The plan now for the patient is for her to be discharged with the drain in place. On CT scan her abscess has decreased in size. She will be seen in follow up by Dr. Alexander who will manage the patient's drain and also decide if she needs further antibiotics. He plans to see the patient in 1 week. He will be getting another CT scan to see the size of the abscess. He and I and the patient all agreed to sending the patient home on oral Septra DS 1 p.o. every 12 hours for 7 days and then when the patient sees Dr. Alexander in the office he can decide if the patient needs further antibiotics. I am available to see the patient on a p.r.n. basis. I am signing off the case for now. cc: Pastor Castillo MD
[2017-04-20] MEDS: VANCOMYCIN 1,200 MG in NS 250 ML IV SCH (17:21)
--- NOTE | 2017-04-20 18:00 | DISCHARGE SUMMARY ---
ADMISSION DATE: 04/15/2017 DISCHARGE DATE: 04/20/2017 FINAL DISCHARGE DIAGNOSES: 1. Pelvic abscess secondary to methicillin-resistant Staphylococcus aureus status post laparoscopic abdominal washout with placement of an abdominal drain. 2. Hypertension. 3. Dyslipidemia. 4. Iron-deficiency anemia. 5. Leukocytosis. CONSULTATIONS REQUESTED DURING THIS HOSPITAL STAY: 1. General surgery consultation with Dr. Alexander. 2. Infectious disease consultation with Dr. Castillo. PROCEDURES PERFORMED DURING THIS HOSPITAL STAY: Laparoscopic abdominal washout with placement of an abdominal drain. IMAGING PERFORMED DURING THIS HOSPITAL STAY: CT of the abdomen and pelvis which revealed pelvic abscesses adjacent to the rectum and the vaginal cuff. HOSPITAL COURSE: Ms. Ocasio is a 76-year-old female with a history of a recent hysterectomy, who was sent to the ER after the patient was noted to have persistent fever and had an outpatient CAT scan done that revealed pelvic abscesses. The patient was admitted to the hospitalist service and general surgery as well as ID were consulted. It was decided by the surgeon that the patient would benefit from an abdominal washout plus an abdominal drain placement. The patient underwent the surgical procedure on April 16, 2017. Cultures were taken from the abscess. The patient was initially started on broad-spectrum antibiotics. The abdominal fluid grew out MRSA and the patient was continued on IV vancomycin. With the initiation of IV antibiotics, the patient's symptoms improved. She no longer had any fevers and her white count normalized. A repeat CT of the pelvis was done on April 20, 2017 and that revealed a decrease in the size of the pelvic abscess. by Dr. Alexander and Dr. Solomon that the patient could be discharged home on Septra for another 7 days. The patient was noted to be iron deficient during this hospitalization and iron supplementation has been on hold due to the patient's active infection. Once the patient's active infection is cleared, the patient can be started on iron supplementation. DISCHARGE MEDICATIONS: 1. Septra DS 1 tablet oral twice a day x7 days. 2. Norvasc 10 mg p.o. daily. 3. Atorvastatin 40 mg p.o. at bedtime. 4. Losartan 25 mg p.o. daily. DISCHARGE DIET: Low-sodium diet. ACTIVITY: As tolerated. FOLLOWUP INSTRUCTIONS: The patient is scheduled to follow up with Dr. Alexander on April 26, 2017. cc: Matilde Narayan MD
== END 2017-04-20 18:00 | disposition home health service (06) ==
LOC: CT 11:12 → SUATTDRO 15:24 → 4N 15:24
PROVIDERS: ATTEND Internal Medicine

== ENCOUNTER 2017-06-10 14:10 | Inpatient (IN) ==
[2017-06-10] MEDS ORDERED: MORPHINE IV PRN (16:48)
[2017-06-10] MEDS ORDERED: ZOSYN 3.375 GM/NS 3.375 GM/50 ML IVPB IV SCH (17:00)
[2017-06-10 17:29] LABS: MANUAL DIFF NEEDED? NO
[2017-06-10] MEDS ORDERED: VANCOMYCIN IV PER PHARMACY MISC SCH (17:30)
[2017-06-10 17:31] LABS: BASO% 0.8 % (0.0-0.8); EOS# 0.18 X1000 (0.0-0.7); EOS% 1.7 % (0.0-10.0); HEMATOCRIT 33.1 % (37.0-47.0); HEMOGLOBIN 10.2 g/dL (12.0-16.0); IMM GRAN# 0.05 X1000 (0.0-0.04); IMM GRAN% 0.5 % (0.0-0.5); LYMPH# 2.11 X1000 (1.2-3.4); LYMPH% 20.4 % (20.5-51.1); MCH 23.8 PG (27-31); MCHC 30.8 g/dL (33-37); MCV 77.2 FL (81-99); MONO# 0.69 X1000 (0.11-0.59); MONO% 6.7 % (1.7-9.3); MPV 10.3 FL (7.4-10.4); NEUT% 69.9 % (42.2-75.2); PLT 430 X1000 (130-400); RBC 4.29 XMIL (4.2-5.4)
[2017-06-10 17:49] LABS: AGAP 15; BUN 19 mg/dL (8-22); CALCIUM 9.5 mg/dL (8.8-10.2); CHLORIDE 97 mmol/L (98-107); COSMO 273; POTASSIUM 4.5 mmol/L (3.5-5.1); SODIUM 135 mmol/L (136-145); TCO2 23 mmol/L (25-35)
[2017-06-10] MEDS: NS 1,000 ML IV SCH (18:41)
[2017-06-10] MEDS ORDERED: VANCOMYCIN 1.5 GM in NS 250 ML IV ONE (20:00)
[2017-06-10] MEDS: LIPITOR PO SCH (20:02)
[2017-06-11] MEDS: NS 1,000 ML IV SCH ×4 (02:53→17:41)
[2017-06-11 05:31] LABS: BASO% 0.1 % (0.0-0.8); EOS% 0.7 % (0.0-10.0); HEMATOCRIT 29.9 % (37.0-47.0); HEMOGLOBIN 9.4 g/dL (12.0-16.0); IMM GRAN# 0.06 X1000 (0.0-0.04); IMM GRAN% 0.4 % (0.0-0.5); LYMPH# 0.64 X1000 (1.2-3.4); LYMPH% 4.2 % (20.5-51.1); MANUAL DIFF NEEDED? YES; MCH 24.4 PG (27-31); MCHC 31.4 g/dL (33-37); MCV 77.5 FL (81-99); MONO# 0.47 X1000 (0.11-0.59); MONO% 3.1 % (1.7-9.3); NEUT% 91.5 % (42.2-75.2); PLT 386 X1000 (130-400); RBC 3.86 XMIL (4.2-5.4)
--- NOTE | 2017-06-11 05:49 | HISTORY AND PHYSICAL ---
CHIEF COMPLAINT: Patient was sent from the office for recurring abscess. HISTORY OF PRESENT ILLNESS: This is a 76-year-old, very pleasant, female with a past medical history of recurrent abscess and hypertension, who was sent from Dr. Castillo' office as a direct admission for recurrent abdominal abscess. This patient was admitted to the hospital the last days of March for a pelvic abscess secondary to MRSA. Patient has been admitted to the hospital, received vancomycin, and upon discharge she was sent home with Septra and also she was sent home with a drain that was removed in Dr. Alexander's office a few days after discharge. Patient was doing fine all this period of time until approximately 2 weeks ago when she started having fever, so she went to see her primary care doctor, Dr. Conroy. Also, she checked with her [facility] doctor who recommended to contact Dr. Castillo. Apparently there were recommendations to start antibiotics. So, she went to see her primary care doctor, Dr. Debbie Conroy, and she got a prescription for 10 days of Septra DS. Today is day #9 of treatment. During all that period of time she was developing a fever on and off. For the last 2 days she was not having a fever. Dr. Castillo also was informed about this clinical situation and he suggested to do a CT scan which apparently showed a small abscess. So, Dr. Castillo was informed of the results of this exam, who recommends her to be admitted to the hospital. Dr. Alexander will be informed too because he was her primary surgeon during her last hospitalization. At this time, patient is feeling fine, not complaining too much of abdominal pain. No fever. PAST MEDICAL HISTORY: 1. Hypertension. 2. Hyperlipidemia. PAST SURGICAL HISTORY: 1. Left knee replacement. 2. Hysterectomy. 3. Cataract surgery. 4. Appendectomy. 5. Bilateral arm surgery. ALLERGIES: No known drug allergies. SOCIAL HISTORY: Patient denies smoking, drinking alcohol, or consuming illicit drugs. FAMILY HISTORY: Noncontributory. REVIEW OF SYSTEMS: Eleven systems were reviewed and all symptoms are related to H P. PHYSICAL EXAMINATION: VITAL SIGNS: Have not been checked here in the hospital. GENERAL: This is a 76-year-old female lying in bed, in no acute distress. HEENT: Head is normocephalic, atraumatic. Anicteric sclerae and pale conjunctivae. Mucous membranes moist. CARDIOVASCULAR: S1, S2 heard. No murmurs, gallops, or rubs. Regular rate and rhythm. RESPIRATORY: Clear bilaterally to auscultation. No work of breathing or using accessory muscles. ABDOMEN: Soft, nontender to palpation. Bowel sounds present. No organomegaly. No signs of peritoneal irritation. EXTREMITIES: No clubbing, cyanosis, or edema. Peripheral pulses present in both legs. NEUROLOGICAL: Patient is alert and oriented x3. Able to move 4 extremities. Cranial nerves 2 through 12 grossly normal. LABORATORY DATA: Pending at the time of dictation. ASSESSMENT: 1. Recurrent pelvic abscess. 2. Hypertension. 3. Hyperlipidemia. PLAN: The patient is going to be admitted to the hospital. Dr. Castillo from infectious disease and Dr. Alexander from general surgery will be involved in her care. We are going to order labs stat and also tomorrow will check if there is any leukocytosis. We are going to get records from the outside facility for the CT scan that done tomorrow. We will check blood cultures. We will start this patient on Zosyn IV. For deep vein thrombosis prophylaxis, we will use SCDs. Further recommendations to follow according to the clinical situation of the patient. cc: Juan Cheema MD
[2017-06-11 06:56] LABS: BANDS 12 % (0-1); LYMPHS 2 % (21-51)
[2017-06-11 06:57] LABS: HYPOCHROM 2+; LARGE PLATELETS 1+
[2017-06-11] MEDS: COZAAR PO SCH (09:41)
[2017-06-11] MEDS: PRILOSEC PO SCH (09:42)
[2017-06-11 11:35] LABS: INR 1.07; PROTIME 11.3 Seconds (9.2-11.7)
[2017-06-11] MEDS ORDERED: SENSORCAINE 0.25%/EPI 1:200,000 ONE (12:35)
[2017-06-11] MEDS ORDERED: LR 1,000 ML ONE (12:35)
[2017-06-11] MEDS ORDERED: XYLOCAINE 1% ONE (12:35)
--- NOTE | 2017-06-11 12:54 | CONSULTATION ---
DATE OF CONSULTATION: 06/11/2017 REQUESTING PHYSICIAN: Dr. Pastor Castillo. REASON FOR CONSULTATION: Concerning pelvic abscess. HISTORY OF PRESENT ILLNESS: A 76-year-old female, well known to me, who in March had a transvaginal hysterectomy done by Dr. Gutierrez. She developed an abscess after that. I initially had gone in and drained the abscess laparoscopically, and she initially did well. Her overall clinical status improved. She had been doing well and actually seen me in the office postoperatively and continued to do well. She has subsequently developed a fever and some discomfort and was seen by Dr. Castillo and had a repeat CT scan that showed re-accumulation of the abscess. Given this, I discussed over the phone with Dr. Castillo about admitting her plan on planning on repeat diagnostic laparoscopy with wash out. She is, otherwise, doing well. PAST MEDICAL HISTORY: Hypertension and urinary incontinence. PAST SURGICAL HISTORY: Previous diagnostic laparoscopy with washout, hysterectomy, left knee arthroplasty, appendectomy. MEDICATIONS: She is currently on antibiotics including vancomycin. ALLERGIES: None. SOCIAL HISTORY: Lives in [place]. FAMILY HISTORY: Reviewed and positive for hypertension and stroke. REVIEW OF SYSTEMS: A full 10-point review of systems obtained, negative as specified in HPI. PHYSICAL EXAMINATION: Vital Signs: Patient is currently afebrile. Temperature 98.5, most recent pulse is 93, most recent respiratory rate 16, blood pressure 125/40, O2 saturation 93% on room air. General: In no acute distress. Resting comfortably. HEENT: Normocephalic, atraumatic. Pupils equal, round, reactive to light. Mucous membranes moist. Oropharynx benign. Neck: Supple. Trachea midline. Cardiovascular: Regular rate and rhythm. Lungs: Grossly clear. Abdomen: Soft, nontender, nondistended at this time. Extremities: Moves all extremities. Neurologic: Grossly intact. Skin: No signs of jaundice. Vascular: All extremities perfused. LABORATORY: White blood cell count 15, hematocrit is 29. Remainder of labs reviewed. Imaging done at the imaging center. I do not have access to a report, but I did discuss over the phone with Dr. Castillo about an abscess that measured at least 8 cm. ASSESSMENT AND PLAN: A 76-year-old female with re-accumulation of pelvic abscess. Re-accumulation of pelvic abscess. At this time, we will plan on diagnostic laparoscopy with repeat washout. At this time, given the fact that she is further out from her operation, I can be more aggressive near her repair and try to drain it fully. We will plan on surgical intervention later today. cc: Dom Alexander MD
[2017-06-11] MEDS ORDERED: XYLOCAINE-MPF 2% ONE (13:12)
[2017-06-11] MEDS ORDERED: AMIDATE ONE (13:12)
[2017-06-11] MEDS ORDERED: TORADOL ONE (13:51)
--- NOTE | 2017-06-11 14:02 | PROGRESS NOTE ---
DATE: 06/11/2017 PRESENT ILLNESS: The patient has a recurrence of her methicillin-resistant Staph aureus pelvic abscess. MEDICATIONS: The patient is on vancomycin. PHYSICAL EXAMINATION: Vital Signs: Temperature is 98.7 degrees, pulse 79, respirations 20, blood pressure is 110/46. Generally, this is a healthy-appearing, elderly female. She is in no acute distress. She says she is not having any pain or high fever. Lungs clear to auscultation. Cardiovascular: Regular heart rate. Abdomen and Pelvis: Soft and nontender. Neurologic: Patient is alert. She can move her extremities. LABORATORY DATA AND X-RAY: The patient's CBC today shows a white count of 15,120, hemoglobin 9.4, and platelet count 386,000 Patient's blood culture is pending. The patient does not have a creatinine that was drawn today. The one drawn yesterday was 0.9. ASSESSMENT AND PLAN: Patient has a pelvic abscess. Dr. Alexander is going to operate on the patient this afternoon. I plan to continue going with the vancomycin certainly for a longer period than we did during her last admission to the hospital. Therefore, I have ordered a PICC and have put a consult in for [facility] to supply the patient's vancomycin at home. The patient's comorbidities include the fact that she is elderly. She does not seem to have much of comorbidity other than the fact that she is elderly. cc: Pastor Castillo MD
[2017-06-11] MEDS ORDERED: ZEMURON ONE ×2 (14:20→14:31)
--- NOTE | 2017-06-11 14:27 | PROGRESS NOTE ---
DATE: 06/11/2017 SUBJECTIVE: Patient reports feeling fine. No abdominal pain, no nausea, vomiting. OBJECTIVE: Patient reports feeling fine. No fever or chills. No abdominal pain. Vital signs: Temperature 98.7 degrees, heart rate 79, respiratory 20, blood pressure 110/46, O2 saturation 95% on room air. General: This is a 76-year-old female lying in bed in no acute distress. HEENT: Head is normocephalic, atraumatic. Anicteric sclerae and pale conjunctivae. Mucous membranes moist. Neck: Supple. No JVD noted. No carotid bruits. No lymphadenopathy. No thyromegaly. Cardiovascular: S1, S2 heard. No murmurs, gallops, or rubs. Regular rate and rhythm. Respiratory: Clear bilaterally to auscultation. No work of breathing or using accessory muscles. Abdomen: Soft, nontender to palpation. Bowel sounds present. No organomegaly. Extremities: No clubbing, cyanosis, or edema. Peripheral pulses present in both legs. Neurological: Patient is alert and oriented x3. Able to move 4 extremities. Cranial nerves 2-12 grossly normal. LABORATORY DATA: White cell count 15.12, hemoglobin 9.4, hematocrit 29.9, platelets 386,000, no BMP from today. ASSESSMENT AND PLAN: 1. Recurrent pelvic abscess. Dr. Castillo from Infectious Disease and Dr. Alexander from General Surgery has been consulted. Dr. Alexander is planning to do a laparoscopic exploration and they are planning to put a drainage. That is going to be done today. Currently patient is on vancomycin and will leave decision Dr. Castillo for how long this patient will need antibiotics, apparently this time this patient will need IV medications so a PICC line is going to be placed today. 2. Hypertension. Will continue home medications. 3. Hyperlipidemia. Will continue home medications. cc: Juan Cheema MD
[2017-06-11] MEDS ORDERED: OFIRMEV 1000 MG/ISOTONIC SOLN 1,000 MG/100 ML BOTTLE ONE (15:03)
[2017-06-11] MEDS ORDERED: NS 250 ML ONE (15:07)
[2017-06-11] MEDS ORDERED: ROBINUL ONE (15:38)
[2017-06-11] MEDS ORDERED: NEOSTIGMINE ONE (15:39)
[2017-06-11] MEDS ORDERED: FENTANYL ONE (15:40)
[2017-06-11] MEDS ORDERED: MARCAINE 0.25% PF ONE (15:42)
[2017-06-11] MEDS ORDERED: SODIUM CHLORIDE 0.9% 10 ML ONE (15:43)
[2017-06-11] MEDS ORDERED: EXPAREL 1.3% ONE (15:43)
[2017-06-11] MEDS ORDERED: MOBIC PO PRN (17:00)
--- NOTE | 2017-06-11 17:10 | CONSULTATION ---
DATE OF CONSULTATION: 06/10/2017 CONCLUSION: The patient has a recurrence of her methicillin-resistant Staph aureus pelvic abscess. RECOMMENDATIONS: I have placed the patient on vancomycin and I have discontinued Zosyn. I earlier had talked to Dr. Alexander who saw the patient during her last admission and he plans on operating on the patient. We have made her NPO after midnight. DISCUSSION: The patient had a hysterectomy and vaginal closure performed by Dr. Gutierrez. Following that, she developed a pelvic abscess. Patient was seen by Dr. Alexander. A catheter was inserted in the abscess to drain it. The patient did well up until approximately 10 days ago when she became lethargic and had extreme malaise. She also had a high fever. She had a CAT scan performed at the imaging center and it showed a residual pelvic abscess which lies between the urinary bladder and rectum which is again lobulated and multiloculated with the major portion currently measuring 8.1 x 4.3 cm and the major portion previously measured 8.5 x 5.6 cm. Therefore, the majority of the abscess remains. There is inflammatory change also present, particularly along the superior aspect of the abscess and does cause some inflammation of nearby loops of small bowel. Also seen were stable [id number] hepatic and a benign-appearing left renal cyst. There was moderate constipation with retained fecal material throughout, more from the proximal to the mid colon. Patient said she is not having any pelvic pain. She has not had any diarrhea or dysuria. The only lab work back on the patient as her CBC which shows a white count of 10,360, hemoglobin 10.2, and platelet count 430,000. Blood cultures have been drawn and are pending. PAST MEDICAL HISTORY/REVIEW OF SYSTEMS: Eyes and ears: The patient trouble hearing. She does wear glasses. Neck: No stiffness. Respiratory: No cough or shortness of breath. Cardiac: No chest pain or palpitations. : The patient has urinary incontinence. She does not have dysuria or flank pain. GI: The patient has not had diarrhea, nausea or vomiting. Endocrine: Patient is not a diabetic and she does not have hypothyroidism. Hematologic: The patient does not have anemia or bleeding tendency. Bones, joints. Muscles: No joint swelling or myalgia. Integument: No rash. 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 PREVIOUS HOSPITALIZATIONS AND OPERATIONS: She has had 2 vaginal deliveries and a hysterectomy. She has also had vaginal closure. She has had a left total knee arthroplasty, bilateral lateral arm fractures, and an appendectomy. MEDICAL DISEASES: Positive for hypertension, urinary incontinence and hyperlipidemia. INFECTIOUS DISEASE HISTORY: Positive for UTI and methicillin-resistant Staph aureus pelvic abscess. FAMILY HISTORY: Positive for hypertension and stroke. SOCIAL HISTORY: The patient lives in [place]. She is . She does not have any pets at home. ALLERGIES: She has no known drug allergies. HOME MEDICATIONS: Septra, losartan, Atorvastatin and amlodipine. PHYSICAL EXAMINATION: Vital signs: None as of yet. General: The patient is a healthy- appearing elderly female who is in no acute distress. Head, eyes, ears, nose, and throat: She can hear my spoken words and see near objects. There was no white coating to the tongue. Neck: No meningismus. Thorax: No increased AP diameter. Lungs: Clear to auscultation. Cardiovascular: Heart rate is regular. Peripheral pulses are palpable. Abdomen: Abdomen and pelvis are soft and nontender. Neurologic: The patient is alert. She can move her extremities. There is no tremor. Her sensation is intact to touch. Her memory as regarding her medical history is good. Integument: No rash noted. Thank you for the consult. cc: Pastor Castillo MD
[2017-06-11] MEDS: PERIDEX MT SCH (21:01)
[2017-06-11] MEDS: SEPTRA DS PO SCH (21:01)
[2017-06-11] MEDS: LIPITOR PO SCH (21:01)
[2017-06-11] MEDS: VICON-C PO SCH (21:01)
[2017-06-11] MEDS: NORCO-10 PO PRN (21:01)
--- NOTE | 2017-06-11 21:08 | OPERATIVE NOTE ---
PROCEDURE DATE: 06/11/2017 POSTOP DIAGNOSES: 1. Fever. 2. Leukocytosis. 3. Possible intraabdominal abscess in the pelvis by CT scan. POSTOP DIAGNOSES: 1. Fever. 2. Leukocytosis. 3. Dense adhesions secondary to previous surgery down in the pelvis causing potential bowel obstruction and very small abscess encountered. PROCEDURE: Diagnostic laparoscopy with conversion to exploratory laparotomy with drainage of intraabdominal abscess and lysis of adhesions. SURGEON: Dom Alexander MD. SHODER FILLER: None. ANESTHESIA: General endotracheal. FINDINGS: She had a segment of small bowel densely adherent to what appears to be her vaginal remnant and was very stoic and wadded in multiple places which could be confusing for an abscess on CT scan. We did encounter a very small abscess that was drained and sent for cultures but it measured likely less than a centimeter in size. There is no other pathology noted on any of the other explorations in the area the pelvis down to the peritoneal reflection that I could see or feel. BRIEF HISTORY: The patient is a 76-year-old female who just over 2 months ago had a hysterectomy done at [facility] facility. She developed an abscess which I drained laparoscopically. She came back in with a fever and leukocytosis and a CT scan from [facility] that showed an 8 cm abscess by report. It is felt the patient would benefit from a diagnostic laparoscopy. The risks, benefits, alternatives were discussed. All questions answered. DESCRIPTION OF PROCEDURE: After informed consent was obtained, patient brought to the operative theatre, transferred to operating table, placed supine position. General endotracheal anesthesia was then performed without complication. A formal time-out was then performed confirming patient, date, procedure. All in agreement. At that time attention given abdomen. An infraumbilical incision was made through which using the Optiview technique we inserted a 5 mm trocar connected to insufflation. Pneumoperitoneum was achieved. Under direct visualization placed 2 more 5 mm trocars, 1 in the left lower quadrant, 1 in the right lower quadrant. At that point we examined the abdomen. There was adhesions. We sharply lysed these adhesions and they were mostly omentum. We got down to the pelvis where the abscess was described just below the bladder and above the rectum. We encounter was a significant area of inflamed small bowel and adhesed small bowel to what likely represents the remnant of the vagina. We tried multiple attempts to try to break this area up. We did encounter a small amount of purulence which we drained and sent for culture but the small bowel was densely adhered to this. Given the concern that there might be an abscess underneath this given her leukocytosis and her CT scan findings and the inability to safely do this laparoscopically we converted to open and did a standard midline incision. We removed the remaining trocars. Upon entering the abdomen we examined the dense adhesions, again it felt like it was near where the remnant of vaginal was. With meticulous dissection we were able to dissect off the small bowel from the area. I did encounter 1 small serosal tear which was unavoidable and we did repair it with interrupted silks stitch. The other aspects of the bowel were taken down sharply. I did not encounter any injuries to the bowel. We did fill the bladder up laparoscopically and did not see any leakage of water or fluid. She did not have any bloody urine output during the procedure therefore suggested that we were safe from the bladder although we are intimately attached to it, we took down all the adhesions and examined the pelvis in its entirety down to what we can find of the peritoneal reflection and the peritoneum. I could not see beyond this area. We could feel what felt like the remnant of the vagina but I could not get past this without risking significant injury to the surrounding tissue and/or the bladder. We elected to irrigate out the abdomen copiously until the suctioned fluid was clear. We reexamined the area, again did not see any abscess. My suspicion is that this wad of small bowel was confused for an abscess by its appearance and by its twisted nature on the in vivo but again we did not find an abscess. This time again after irrigating out we closed her abdomen using running loop PDS from either side stapled the skin. She stayed in the operating room for a TAP block by anesthesia. I did discuss all these findings with the family. cc: Dom Alexander MD
[2017-06-11] MEDS: VANCOMYCIN 1.2 GM in NS 250 ML IV SCH (22:04)
[2017-06-12] MEDS: NS 1,000 ML IV SCH ×2 (03:56→14:07)
[2017-06-12] MEDS: NORCO-10 PO PRN ×4 (03:56→20:15)
[2017-06-12 05:27] LABS: MANUAL DIFF NEEDED? NO
[2017-06-12 05:34] LABS: BASO% 0.1 % (0.0-0.8); EOS# 0.23 X1000 (0.0-0.7); EOS% 2.1 % (0.0-10.0); HEMATOCRIT 30.2 % (37.0-47.0); HEMOGLOBIN 9.3 g/dL (12.0-16.0); IMM GRAN# 0.02 X1000 (0.0-0.04); IMM GRAN% 0.2 % (0.0-0.5); LYMPH# 1.33 X1000 (1.2-3.4); LYMPH% 12.3 % (20.5-51.1); MCH 24.5 PG (27-31); MCHC 30.8 g/dL (33-37); MCV 79.5 FL (81-99); MONO# 0.37 X1000 (0.11-0.59); MONO% 3.4 % (1.7-9.3); MPV 10.6 FL (7.4-10.4); NEUT% 81.9 % (42.2-75.2); PLT 371 X1000 (130-400)
[2017-06-12] MEDS ORDERED: VANCOMYCIN 1.2 GM in NS 250 ML IV SCH (08:00)
[2017-06-12] MEDS: CALTRATE 600 + D PO SCH (08:42)
[2017-06-12] MEDS: VESICARE PO SCH (08:43)
[2017-06-12] MEDS: SEPTRA DS PO SCH ×2 (08:43→20:15)
[2017-06-12] MEDS: PRILOSEC PO SCH (08:43)
[2017-06-12] MEDS: COZAAR PO SCH (08:43)
[2017-06-12] MEDS: PERIDEX MT SCH ×2 (08:45→20:15)
[2017-06-12] MEDS: NORVASC PO SCH (08:48)
--- NOTE | 2017-06-12 13:59 | PROGRESS NOTE ---
DATE: 06/12/2017 SUBJECTIVE: The patient reports feeling fine. She is eating a clear liquid diet okay with no nausea or abdominal pain. OBJECTIVE: Vital Signs: Temperature is 97.6, heart rate 84, respiratory rate 20, blood pressure 129/50, and O2 saturation 95% on 3 L nasal cannula. General: The patient is a 76-year-old female lying in bed in no acute distress. HEENT: The head is normocephalic and atraumatic. Anicteric sclerae. Pale conjunctivae. Mucous membranes are moist. Neck: Supple. No JVD noted. No carotid bruits. No lymphadenopathy or thyromegaly. Cardiovascular: S1 and S2 are heard. No murmurs, gallops, or rubs. Regular rate and rhythm. Respiratory: Clear bilaterally to auscultation. No work of breathing or use of accessory muscles. Abdomen: Soft and nontender to palpation. There is a midline surgical scar covered by a dressing, clean and dry. No signs of erythema or irritation. Bowel sounds present. No organomegaly. Extremities: No clubbing, cyanosis, or edema. Peripheral pulses are present in both legs. Neurological: The patient is alert and oriented times 3 and moves all 4 extremities. Cranial nerves 2 through 12 are grossly normal. LABORATORY DATA: White blood count is 10.77, hemoglobin 9.3, hematocrit 30.2, and platelets 371. ASSESSMENT AND PLAN: 1. Recurrent pelvic abscess. Dr. Alexander from General Surgery has taken this patient to the OR initially for diagnostic laparoscopy and then exploratory laparotomy with drainage of intra- abdominal abscess and lysis of adhesions. The patient is doing fine with no abdominal pain and tolerating a clear liquid diet. It is at this point that we are going to continue with the same management following recommendations from General Surgery. For management of antibiotics Dr. Castillo from Infectious Disease has been consulted and he has this patient on vancomycin. At this point we will see what will be the long-term antibiotic therapy. We will talk with Dr. Castillo next Wednesday. In the meantime, we will continue with the same management. 2. Hypertension. Blood pressure is under control with his home medications. 3. Hyperlipidemia. We will continue with the home medications. cc: uJan Cheema MD
[2017-06-12] MEDS: VANCOMYCIN 1.2 GM in NS 250 ML IV SCH (20:14)
[2017-06-12] MEDS: VICON-C PO SCH (20:15)
[2017-06-12] MEDS: LIPITOR PO SCH (20:15)
[2017-06-13] MEDS: NORCO-10 PO PRN ×2 (05:51→13:56)
[2017-06-13] MEDS: TYLENOL PO PRN ×2 (05:51→20:18)
[2017-06-13] MEDS: NS 1,000 ML IV SCH ×2 (05:53→13:55)
[2017-06-13 06:01] LABS: MANUAL DIFF NEEDED? NO
[2017-06-13 06:09] LABS: BASO% 0.1 % (0.0-0.8); EOS% 1.3 % (0.0-10.0); HEMATOCRIT 29.1 % (37.0-47.0); HEMOGLOBIN 8.7 g/dL (12.0-16.0); IMM GRAN# 0.06 X1000 (0.0-0.04); IMM GRAN% 0.4 % (0.0-0.5); LYMPH# 1.63 X1000 (1.2-3.4); LYMPH% 10.2 % (20.5-51.1); MCHC 29.9 g/dL (33-37); MCV 80.2 FL (81-99); MONO# 0.92 X1000 (0.11-0.59); MONO% 5.8 % (1.7-9.3); MPV 10.3 FL (7.4-10.4); NEUT% 82.2 % (42.2-75.2); PLT 327 X1000 (130-400); RBC 3.63 XMIL (4.2-5.4)
[2017-06-13] MEDS: VESICARE PO SCH (08:59)
[2017-06-13] MEDS: CALTRATE 600 + D PO SCH (08:59)
[2017-06-13] MEDS: PERIDEX MT SCH ×2 (09:00→20:19)
[2017-06-13] MEDS: SEPTRA DS PO SCH ×2 (09:00→20:18)
[2017-06-13] MEDS: PRILOSEC PO SCH (09:00)
[2017-06-13] MEDS: NORVASC PO SCH (09:01)
[2017-06-13] MEDS: COZAAR PO SCH (09:01)
--- NOTE | 2017-06-13 09:21 | PROGRESS NOTE ---
DATE: 06/13/2017 SUBJECTIVE: Feels okay. Had a fever overnight but not really complaining of any abdominal pain. No cough. PHYSICAL EXAMINATION: Vital Signs: Temperature is 99.4 degrees, T-max overnight was 102.3, pulse 85, blood pressure 136/57, oxygen saturation 97% on room air. Abdomen: Soft, mildly distended but nontender. Incision has a dressing in place. It is clean, dry, intact. I do not see any cellulitis extending out from her incision. Extremities: Lower extremities without edema. She has IVs in both arms without any signs of cellulitis. LABS: White count is back up to 15. It is fluctuating. Hematocrit is 29. ASSESSMENT/PLAN: A 76-year-old female status post drainage of abdominal abscess. Clinically, she looks okay. Did have a fever last night and it is possibly just related to her surgery. Her exam is benign. She clinically looks all right. We will continue her antibiotics and monitor her for now. Given her low pelvic dissection, we will keep her Graham in place. She is receiving antibiotics per Dr. Castillo. We will continue to monitor her. cc: Ivana Ruiz MD
[2017-06-13] MEDS: ZOSYN 3.375 GM/NS 3.375 GM/50 ML IVPB IV SCH ×2 (13:54→20:18)
--- NOTE | 2017-06-13 17:06 | PROGRESS NOTE ---
DATE: 06/10/2017 SUBJECTIVE: Patient reports having had fever last night but denies any abdominal pain or chills right now. No nausea or vomiting. OBJECTIVE: Vital Signs: Temperature today 98.2 and last night around 8:50 102.3 degrees, heart rate 76, respiratory rate 18, blood pressure 126/48, O2 saturation 96% on room air. General examination: This is a 76-year-old female lying in bed, in no acute distress. HEENT: Head is normocephalic, atraumatic. Anicteric sclerae and pale conjunctivae. Mucous membranes moist. Neck: Supple. No JVD noted. No carotid bruits. No lymphadenopathy. No thyromegaly. Cardiovascular: S1, S2 heard. No murmurs, gallops, or rubs. Regular rate and rhythm. Respiratory: Clear bilaterally to auscultation. No work of breathing or using accessory muscles. Abdomen: Soft. Nontender to palpation. Bowel sounds present. No organomegaly. Midline surgical scar covered by dressing clean and dry with no signs of erythema or irritation. Extremities: No clubbing, cyanosis, or edema. Peripheral pulses present in both legs Neurologic Exam: Patient is alert and oriented x3. Moves 4 extremities. Cranial nerves 2 through 12 grossly normal. LABORATORY DATA: White cell count 15.93, hemoglobin 8.7, hematocrit 29.1, platelets 327,000. No BMP from today. ASSESSMENT AND PLAN: 1. Recurrent pelvic abscess status post exploratory laparotomy and drainage of abscess. Dr. Alexander from general surgery has been taking care of this patient. Today Dr. Ruiz who is on-call is following this patient over the weekend. This patient is doing good clinically. She reports 1 episode of fever. Because the white cell count is getting higher and the patient spiked a fever, I prefer to add Zosyn to her current treatment. We are going to continue checking CBC daily. We will see what Dr. Alexander has to say tomorrow, Wednesday. Dr. Castillo from infectious disease is also following this patient. 2. Hypertension. Blood pressure is under control. We will continue with the same management. 3. Hyperlipidemia. We will continue home medications. cc: Juan Cheema MD
[2017-06-13] MEDS: LIPITOR PO SCH (20:18)
[2017-06-13] MEDS: VICON-C PO SCH (20:18)
[2017-06-13 20:20] LABS: RANDOM VANCOMYCIN 5.2 ug/mL (5.0-80)
[2017-06-13] MEDS: VANCOMYCIN 1,750 MG in NS 250 ML IV SCH (22:40)
[2017-06-14] MEDS: ZOSYN 3.375 GM/NS 3.375 GM/50 ML IVPB IV SCH ×5 (04:07→23:37)
[2017-06-14] MEDS: NS 1,000 ML IV SCH ×3 (04:10→17:07)
[2017-06-14 05:58] LABS: BASO% 0.2 % (0.0-0.8); EOS# 0.24 X1000 (0.0-0.7); EOS% 1.8 % (0.0-10.0); HEMATOCRIT 28.6 % (37.0-47.0); HEMOGLOBIN 8.8 g/dL (12.0-16.0); IMM GRAN# 0.04 X1000 (0.0-0.04); IMM GRAN% 0.3 % (0.0-0.5); LYMPH# 1.19 X1000 (1.2-3.4); MANUAL DIFF NEEDED? YES; MCH 24.2 PG (27-31); MCHC 30.8 g/dL (33-37); MCV 78.8 FL (81-99); MONO# 0.43 X1000 (0.11-0.59); MONO% 3.2 % (1.7-9.3); MPV 10.3 FL (7.4-10.4); NEUT% 85.5 % (42.2-75.2); PLT 303 X1000 (130-400); RBC 3.63 XMIL (4.2-5.4)
--- NOTE | 2017-06-14 06:25 | PROGRESS NOTE ---
DATE: 06/14/2017 SUBJECTIVE: The patient is doing okay. No major issues. She tolerated her diet. OBJECTIVE: Vital Signs: Patient is currently afebrile. Her vital signs are stable. General: No acute distress. Cardiovascular: Regular rate and rhythm. Lungs: Grossly clear. Abdomen: Soft. Appropriately tender. Incision healing well. LABORATORY: White blood count 13, which is down from 15, hematocrit is 28, platelet count 303,000. ASSESSMENT AND PLAN: A 76-year-old female, status post exploratory laparotomy. Status post exploratory laparotomy. At this time, the patient is on antibiotics, although during the operation did not fight discrete abscess. I think there was some confusion about the intestines being scarred up against her previous surgery that may have appeared to be an abscess. We did examine the area fully and thoroughly and I did not find anymore abscess. We run the risk of injuring the bladder surrounding the pelvic floor and the rectum if we got any more aggressive. I did take down all the adhesions. I spent a long time this morning, at least 15 minutes, discussing this all with the patient. She voiced an understanding. At this time, I will get her Graham catheter out. She is on a GI soft diet. Hopefully, we can continue to progress her and move her forward with getting out of the hospital soon. At this time I did not see the benefit of a repeat CT scan unless her fever or leukocytosis persists. cc: Dom Alexander MD
[2017-06-14 07:45] LABS: LYMPHS 5 % (21-51); MONO 2 % (1-9)
[2017-06-14] MEDS: PRILOSEC PO SCH (08:10)
[2017-06-14] MEDS: COZAAR PO SCH (08:10)
[2017-06-14] MEDS: SEPTRA DS PO SCH (08:10)
[2017-06-14] MEDS: PERIDEX MT SCH ×2 (08:10→20:10)
[2017-06-14] MEDS: NORCO-10 PO PRN (08:10)
[2017-06-14] MEDS: CALTRATE 600 + D PO SCH (08:10)
[2017-06-14] MEDS: VESICARE PO SCH (08:10)
[2017-06-14] MEDS: NORVASC PO SCH (08:10)
[2017-06-14] MEDS: TYLENOL PO PRN (12:00)
[2017-06-14] MEDS: ZOFRAN IV PRN (12:10)
--- NOTE | 2017-06-14 15:32 | PROGRESS NOTE ---
DATE: 06/14/2017 SUBJECTIVE: The patient reports no fever during the last 24 hours. No nausea, vomiting or abdominal pain. OBJECTIVE: Vital Signs: Temperature 98 degrees, heart rate 94, respiratory rate 20, blood pressure 141/51. O2 saturation 97% on room air. General: This is a 76-year -old female lying in bed, in no acute distress. HEENT: Head is normocephalic, atraumatic. Anicteric sclerae and pale conjunctivae. Mucous membranes moist. Neck: Supple. No JVD noted. No carotid bruits. No lymphadenopathy. No thyromegaly. Cardiovascular: S1, S2 heard. No murmurs, gallops, or rubs. Regular rate and rhythm. Respiratory: Clear bilaterally to auscultation. No work of breathing or using accessory muscles. Abdomen: Soft, mildly tender to palpation around the surgical wound which is covered by a dressing, clean and dry. No signs of erythema around it or signs of peritoneal irritation. Bowel sounds present. Extremities: No clubbing, cyanosis, or edema. Peripheral pulses present in both legs. Neurological: Patient alert oriented x3. Moves 4 extremities. Cranial nerves 2-12 grossly normal. LABORATORY DATA: White cell count today he is a 13.25, hemoglobin 8.8, hematocrit 28.6, platelets 303,000. ASSESSMENT AND PLAN: 1. Recurrent pelvic abscess, status post exploratory laparotomy and lysis of adhesions. Dr. Alexander from General surgery has performed this procedure 2 days ago. One time he was advised about this recurrence of abscess and actually although in the CT of the abdomen done in outside facility, he reported an abscess 8 x 7 cm. Actually, there was no abscess at all and apparently, there was an vaginal stump that looked like abscess. In any case , he has dissected all that area, and made sure there was no abscess at all and the plan is to keep the patient in the hospital. When the patient is cleared by surgery, we can discharge her home on antibiotics that are going to be prescribed by Dr. Castillo. The patient was on vancomycin since admission but because the day before yesterday she spiked a fever, and also white cell count went up, I decided to add Zosyn to this current treatment. On both medications since yesterday, we will see what he has to say today. 2. Hypertension. Blood pressure is under control. We will continue with the same management. 3. Hyperlipidemia. We will continue home medications. Overall, this patient is doing good and the patient can be discharged home when okay with general surgery, on antibiotics as per ID Dr. Castillo. cc: Juan Cheema MD MTDD
--- NOTE | 2017-06-14 16:52 | PROGRESS NOTE ---
DATE: 06/14/2017 PRESENT ILLNESS: The patient previously had a methicillin-resistant Staph aureus pelvic abscess. It was felt that she had a recurrence of it. However at surgery Dr. Alexander did not find much of an abscess. The patient however continues to have a leukocytosis. MEDICATIONS: The patient is on vancomycin, Zosyn and Septra. PHYSICAL EXAMINATION: Vital Signs: Temperature is 98.8 degrees, pulse 95, respirations 18, blood pressure 139/51. General: This is a somewhat ill-appearing, elderly female. She is in no acute distress. Lungs: Clear to auscultation. Cardiovascular: Regular heart rate. Abdomen and pelvis: The abdomen and pelvis are soft. The midline incision is intact. Neurologic: Patient is alert. She can move her extremities. LABORATORY AND X-RAY: All the patient's cultures taken at surgery are sterile and also blood cultures are sterile. Today the CBC shows a white count of 13,250, hemoglobin 8.8 and platelet count 303,000. The patient's last creatinine was yesterday and it was 0.7. ASSESSMENT AND PLAN: For right now I am going to continue with vancomycin and Zosyn. I have discontinued Septra in view of the fact that the organisms that Septra would be covering are covered by the vancomycin and Zosyn. COMORBIDITIES: She is elderly and also she previously had surgery. cc: Pastor Castillo MD
[2017-06-14] MEDS: VANCOMYCIN 1,750 MG in NS 250 ML IV SCH (20:09)
[2017-06-14] MEDS: LIPITOR PO SCH (20:10)
[2017-06-14] MEDS: VICON-C PO SCH (20:10)
[2017-06-15] MEDS: NS 1,000 ML IV SCH (05:08)
[2017-06-15] MEDS: ZOSYN 3.375 GM/NS 3.375 GM/50 ML IVPB IV SCH ×4 (05:08→23:09)
[2017-06-15 05:32] LABS: MANUAL DIFF NEEDED? NO
[2017-06-15 05:34] LABS: BASO% 0.2 % (0.0-0.8); EOS# 0.06 X1000 (0.0-0.7); EOS% 0.6 % (0.0-10.0); HEMATOCRIT 27.4 % (37.0-47.0); HEMOGLOBIN 8.4 g/dL (12.0-16.0); IMM GRAN# 0.03 X1000 (0.0-0.04); IMM GRAN% 0.3 % (0.0-0.5); LYMPH# 1.22 X1000 (1.2-3.4); LYMPH% 11.3 % (20.5-51.1); MCH 23.8 PG (27-31); MCHC 30.7 g/dL (33-37); MCV 77.6 FL (81-99); MONO# 0.51 X1000 (0.11-0.59); MONO% 4.7 % (1.7-9.3); MPV 10.6 FL (7.4-10.4); NEUT% 82.9 % (42.2-75.2); PLT 303 X1000 (130-400); RBC 3.53 XMIL (4.2-5.4)
[2017-06-15] MEDS ORDERED: HEPARIN SUBQ SCH (06:00)
--- NOTE | 2017-06-15 07:39 | Diag Imaging Result Doc PS360 ---
CHEST-PORTABLE - 06/15/2017 INDICATION: Shortness of breath TECHNIQUE: COMPARISON: None FINDINGS: There is a left PICC line in good position with the tip at the lower SVC. Lung volumes are low. No focal infiltrates, pneumothorax, or pleural effusion. Heart size is top normal. IMPRESSION: No specific acute disease. Electronically signed by Denver Patiño 06/15/2017 7:37 AM
[2017-06-15] MEDS: NORVASC PO SCH (08:35)
[2017-06-15] MEDS: PERIDEX MT SCH ×2 (08:35→20:38)
[2017-06-15] MEDS: COZAAR PO SCH (08:35)
[2017-06-15] MEDS: PRILOSEC PO SCH (08:35)
[2017-06-15] MEDS: CALTRATE 600 + D PO SCH (08:35)
[2017-06-15] MEDS: VESICARE PO SCH (08:35)
--- NOTE | 2017-06-15 10:34 | PROGRESS NOTE ---
DATE: 06/15/2017 SUBJECTIVE: Patient does report some shortness of breath and some leg swelling. This has been going on for several days. She has tolerated diet otherwise. OBJECTIVE: Vital Signs: Patient is currently afebrile. Her vital signs have been stable. Most recent O2 saturation 94% on 2 L. She has been as low as 91% on 2 L. General: No acute distress. Cardiovascular: Regular rate and rhythm. Lungs: Equal breath sounds bilaterally. No increased labored breathing. Abdomen: Soft. Appropriately tender. Incision is healing well. Extremities: Minimal edema noted to bilateral lower extremities. LABORATORY: White blood cell count is 10, hematocrit 27, platelet count 303,000. ASSESSMENT AND PLAN: This is a 76-year-old female status post exploratory laparotomy. 1. Status post exploratory laparotomy. Overall, she is doing well. Her white blood cell count is improving she is on antibiotics. We did not find a discrete abscess and this was discussed with patient. I think she is healing up well from her surgery. I think discharge would be dependent more on the shortness of breath that has developed. 2. Shortness of breath. At this time, we will order chest x-ray and bilateral lower extremity ultrasounds. She has been having mechanical compression devices on bilateral lower extremities but I will start her on subcutaneous heparin. This is likely low risk for venous thrombosis but will evaluate for possible etiology. Will need to keep her until this has been resolved or at least the etiology has been discovered. cc: Dom Alexander MD
[2017-06-15] MEDS: LASIX IV SCH (14:28)
[2017-06-15] MEDS: LOVENOX SUBQ SCH (14:28)
--- NOTE | 2017-06-15 14:28 | Diag Imaging Result Doc PS360 ---
EXAM: ANGIOGRAM/PULMONARY ARTERIES - 06/15/2017 HISTORY: SOB. r/o PE TECHNIQUE: With intravenous contrast. Axial images, reconstructed coronal minute images, and reconstructed 3-D rotating MIP images are obtained. Dose reduction protocol. COMPARISON: None. FINDINGS: There are filling defects in pulmonary arteries at the posterior right lower lobe, posterior inferior left lower lobe, and proximal right upper lobe. These are compatible with pulmonary emboli. There are small bilateral pleural effusions. Compressive atelectasis of the bilateral lower lobes. There is no pneumothorax seen. There is a nonspecific 7.5 mm nodular density at the anterior inferior right upper lobe. The thyroid is mildly heterogeneous, and contains 7 mm calcification in its right lobe. There are cysts noted in the visualized portions of the liver and upper left kidney, similar to that seen on 04/15/2017 CT abdomen. There is a small amount of perihepatic ascites. IMPRESSION: Scattered pulmonary emboli at bilateral lower lobes and right upper lobe. Small bilateral pleural effusions with compressive lower lobe atelectasis. Nonspecific 7.5 mm nodule at anterior inferior right upper lobe. Results were discussed by telephone with Dr. Pastor Castillo at 2:02 PM on 06/15/2017. Electronically signed by Meir Arreola 06/15/2017 2:26 PM
[2017-06-15 15:09] LABS: AGAP 10; BUN 9 mg/dL (8-22); CALCIUM 7.6 mg/dL (8.8-10.2); CHLORIDE 105 mmol/L (98-107); COSMO 270; POTASSIUM 3.6 mmol/L (3.5-5.1); SODIUM 135 mmol/L (136-145); TCO2 20 mmol/L (25-35)
--- NOTE | 2017-06-15 15:18 | PROGRESS NOTE ---
DATE: 06/15/2017 SUBJECTIVE: Today Ms. Ocasio referred to be doing a lot better. Continues to have some residual shortness of breath. OBJECTIVE: Vital signs: Blood pressure 127/57, pulse of 89, respirations 16, temperature is 98.2 degrees. Patient is saturating about 88-93% on 2 L of oxygen. General: Ms. Ocasio is a 76- year-old, female. She is in bed, not seemingly distressed. HEENT: Mucosa is pink and moist. Anicteric. Acyanotic. Neck: Supple. There is positive JVD. Chest: Air entry is bilaterally reduced. There are a few bibasilar crepitations. Cardiovascular: Regular rate and rhythm. No murmurs. Abdomen: Soft. There is an infraumbilical surgical scar which is a surgical wound which is affronted with clips. It looks clean. There is no exudate. No bleeding around the surgical clips. Extremities: No pedal edema. HORSE IDENTIFIER: Patient is awake and alert and oriented x4. There is no focal neurological deficit. LABORATORY DATA: CBC has been reviewed and unremarkable. No chemistry. IMAGING: A chest x-ray which was done today shows nonspecific acute disease. ASSESSMENT: 1. Recurrent pelvic abscess, status post exploratory laparotomy with lysis of adhesion. Today is day 4 postop. Patient is doing well. She is being followed up by Dr. Alexander. 2. Acute hypoxemic respiratory distress. Patient O2 saturation is remarkably low. She is immediate postoperative. We are going to do a CT of the lungs to make sure there is no underlying venous thrombosis. Patient is currently on DVT prophylaxis anyway. 3. Fluid overload. Patient has about a + of pedal edema and also the fluid in the hands, positive jugular venous distention, I am concerned she probably has pulmonary edema from overhydration. I will therefore discontinue the IV fluids, await the results of the CT scan and give her Lasix if necessary. 4. Hypertension, controlled. 5. Dyslipidemia. cc: Kev Watt MD
--- NOTE | 2017-06-15 15:27 | PROGRESS NOTE ---
DATE: 06/15/2017 PRESENT ILLNESS: The patient previously had a methicillin-resistant Staph aureus pelvic abscess. At surgery, during this admission, not much of an abscess was found and all the cultures thus far have been negative. The patient continues to have leukocytosis. She had a pulmonary angiogram today, and it shows the presence of pulmonary emboli. Patient is complaining of some edema and being short of breath. The pulmonary emboli could certainly make her be short of breath and some of her swelling most likely is due to IV normal saline. MEDICATIONS: As far as antibiotics go, the patient is on a combination of vancomycin and Zosyn. PHYSICAL EXAMINATION: Vital Signs: Temperature is 98.2 degrees, pulse is 92, respirations 18, blood pressure 133/62. Generally, this is a somewhat ill-appearing, elderly female. She does appear to have some edema, and she appears to be short of breath at rest. Lungs: Clear to auscultation. Cardiovascular: Heart rate is regular. Abdomen is soft and nontender. The midline incision is intact. There is no erythema or purulence. LABORATORY DATA AND X-RAY: As mentioned above, the CT angiogram of the chest ordered by Dr. Watt shows pulmonary emboli. The patient's CBC shows a white count of 10,770. Hemoglobin 8.4 and platelet count 303,000. BMP was drawn for today but the results are not yet back. Cultures taken at the time of surgery are negative. Chest x-ray shows no acute disease. ASSESSMENT AND PLAN: As regarding the patient's possible abscess, I plan to continue the antibiotics even though the cultures at this time are negative. The white count finally did come down and this happened before the patient got anticoagulation for her pulmonary emboli. From the previous abscess, methicillin-resistant Staph aureus was isolated. The patient's comorbidities: She is elderly and she previously had surgeries starting with her pelvic surgeries done by Dr. Gutierrez. cc: Pastor Castillo MD
--- NOTE | 2017-06-15 15:36 | PROGRESS NOTE ---
DATE: 06/15/2017 SUBJECTIVE: Today Ms. Ocasio refers to be doing fine. She complained of this s shortness of breath on exertion and also a lot of fluids both in her hands and in her legs. OBJECTIVE: Vital signs: Blood pressure 127/57, pulse of 89, respirations 16, temperature 98.3 degrees, patient is saturating 93% and it went down to 88% on 2 L of oxygen. General: Ms. Ocasio a 76-year-old female. She is in bed, mild respiratory distress. HEENT: Mucosa is pink and moist. Anicteric. Acyanotic. Neck: Supple. There is positive JVD. Chest: Air entry is bilaterally reduced. There are diffuse bilateral posterior end expiratory wheezing. Cardiovascular: Regular rate and rhythm. Abdomen: Soft. There is infraumbilical surgical wound which is affronted with clips. Looks clean. No exudates, no bleed. Extremities: No pedal edema. MENTALLY RETARDED TEACHER: Patient is alert and awake and oriented x4. There is no focal neurological deficit. LABORATORY DATA: WBC is 10.77, hemoglobin is 8.4, platelet count of 303,000. A chest x-ray was done this morning which shows nonspecific acute disease. ASSESSMENT: 1. Recurrent pelvic abscess status post exploratory laparotomy with lysis of adhesion by Dr. Alexander. Today is day 4 postop. Patient is tolerating some diet and has regular bowel movement. Patient is currently on Zosyn and vancomycin and is being followed up by Dr. Castillo. 2. Acute hypoxemic respiratory INCOMPLETE REPORT -- DICTATION ENDS HERE. cc: Kev Watt MD MTDAmy
[2017-06-15] MEDS: VANCOMYCIN 1,750 MG in NS 250 ML IV SCH (20:38)
[2017-06-15] MEDS: LIPITOR PO SCH (20:38)
[2017-06-15] MEDS: VICON-C PO SCH (20:38)
[2017-06-16] MEDS: NORCO-10 PO PRN (01:02)
[2017-06-16] MEDS: LOVENOX SUBQ SCH ×2 (03:10→13:29)
[2017-06-16] MEDS: ZOSYN 3.375 GM/NS 3.375 GM/50 ML IVPB IV SCH ×2 (04:37→10:43)
--- NOTE | 2017-06-16 06:12 | PROGRESS NOTE ---
DATE: 06/16/2017 SUBJECTIVE: Patient had a CT PE protocol yesterday that did show multiple pulmonary emboli. By preliminary report, there is evidence of small clots in bilateral lower extremities. There is no official report at this time. Patient is overall not having any acute distress, although she says her appetite is not currently high. She is having a bowel movement. OBJECTIVE: Vital Signs: Patient is currently afebrile. Her vital signs were stable. Her O2 saturation was 94% on 2 L nasal cannula. She is in no respiratory distress. General Examination: Resting comfortably. Cardiovascular: Regular rate and rhythm. Lungs: Grossly clear. No increased labored breathing. Abdomen: Soft, nontender, nondistended. Extremities: Still some mild swelling. Laboratory: None from this morning. ASSESSMENT AND PLAN: A 76-year-old, female, status post exploratory laparotomy, now with pulmonary embolism. 1. Status post exploratory laparotomy. At this time, patient is doing well. She is having bowel movements. We will continue to monitor. 2. Pulmonary embolism. At this time, patient is on therapeutic Lovenox. We will defer to the hospitalist team about switching her over to Coumadin. We will continue to follow. cc: Dom Alexander MD
[2017-06-16] MEDS: PRILOSEC PO SCH (08:58)
[2017-06-16] MEDS: VESICARE PO SCH (08:58)
[2017-06-16] MEDS: LASIX IV SCH (08:58)
[2017-06-16] MEDS: PERIDEX MT SCH ×2 (08:59→21:05)
[2017-06-16] MEDS: NORVASC PO SCH (08:59)
[2017-06-16] MEDS: CALTRATE 600 + D PO SCH (08:59)
[2017-06-16] MEDS: COZAAR PO SCH (08:59)
[2017-06-16] MEDS ORDERED: ELIQUIS PO SCH (14:30)
--- NOTE | 2017-06-16 15:24 | PROGRESS NOTE ---
DATE: 06/16/2017 SUBJECTIVE: Today Ms. Ocasio refers to be doing a little better. She says she has a low appetite but otherwise, the shortness of breath is a whole lot better. OBJECTIVE: Vital signs: Blood pressure is 153/59, pulse of 98, respirations 20 , temperature 98.4 degrees. Patient was saturating 94% on 2 L of oxygen. General: Ms. Ocasio is a 76-year-old female. She is in bed. Does not seem to be in any remarkable distress. HEENT: Mucosa is pink and moist. Anicteric. Acyanotic. Neck: Supple. Chest: Air entry is bilaterally reduced. There are a few bibasilar crepitations. Cardiovascular: Regular rate and rhythm. Abdomen: Soft. There is an infraumbilical surgical scar which is affronted with clips. It looks clean. No exudate and no bleeding. Bowel sounds are present. Extremities: There is no pedal edema. INSURANCE TERRITORY MANAGER: Patient is awake, alert, and oriented x4. There is no focal neurological deficit. LABORATORY DATA: WBC is down to 10.77, hemoglobin is 8.4, platelet count of 303 ,000. Chemistries reviewed; there is no chemistry for this morning. A CTA of the lungs which was done yesterday shows small bilateral pleural effusions with compressive lower lobe atelectases. Nonspecific 7.5 mm nodules. There is also some bilateral pleural effusions. There are scattered pulmonary emboli at bilateral lower lobes and the right upper lobe. ASSESSMENT: 1. Acute hypoxemic respiratory distress secondary to pulmonary emboli and compressive atelectasis. We started the patient on therapeutic Lovenox yesterday. We are going to transition this to b.i.d. Eliquis today. Patient will continue with incentive spirometer and would encourage her to also start moving around since patient has been on 24 hours of therapeutic anticoagulation already. 2. Mild fluid overload. We will continue with the Lasix. Patient's fluid status seems to be improving. 3. Hypertension, controlled. 4. Recurrent pelvic abscess status post exploratory laparotomy with lysis of adhesion. Today is day 5. Patient is doing well. Continues to be on antibiotics and is being followed up by surgery and ID. 5. Dyslipidemia, noted. PLAN: We are going to start her on b.i.d. Eliquis 5 mg. We will discontinue the Lovenox once she starts with the 1st dose of the Eliquis. The patient is advised to be up and sit in the chair. Can now go and use the restroom on her own since she already has 24 hours of therapeutic anticoagulation. Plan discharge soon. cc: Kev Watt MD MTDD
--- NOTE | 2017-06-16 16:21 | PROGRESS NOTE ---
DATE: 06/16/2017 PRESENT ILLNESS: The patient is status post surgery for a methicillin-resistant Staph aureus pelvic abscess. Following surgery the patient continued to have leukocytosis and finally today her white blood cell count normalized. MEDICATIONS: Patient currently is receiving vancomycin and Zosyn. PHYSICAL EXAMINATION: Vital Signs: Temperature is 98.4, pulse 98, respirations 20, blood pressure 153/59. General: This is a fairly healthy-appearing, elderly female. She is less swollen than she was yesterday. Lungs: Clear to auscultation. Cardiovascular: Regular heart rate. Abdomen: Soft and not tender. The midline incision is intact. There is no erythema around it and there is no drainage. LAB AND X-RAY: CBC today shows the white count has normalized, it is 10,770, hemoglobin 8.4, and platelet count 303,000. Creatinine is 0.6. GFR is greater than 60. Blood and abscess cultures are negative. ASSESSMENT AND PLAN: As regarding the patient's possible abscess, at surgery an abscess was not found. However, tissues were inflamed and the patient's white count became normal when she was put on IV antibiotics in the hospital. My plan for her is to stop the vancomycin and Zosyn and put her on Septra to which the methicillin-resistant Staph aureus is susceptible to that was found in her abscess and send her home on that. I told her that it can interact with her hypertension medicine and cause an increase in potassium. Therefore, periodically her potassium will have to be checked. I have electronically sent a prescription for Septra DS b.i.d. for a total of 15 days. I plan to see the patient back my office in 2 weeks. COMORBIDITIES: She is elderly. She has had surgeries starting with the pelvic surgery done by Dr. Gutierrez. cc: Pastor Castillo MD
[2017-06-16] MEDS: ZOFRAN IV PRN (16:51)
[2017-06-16] MEDS: SEPTRA DS PO SCH ×2 (19:41→21:05)
[2017-06-16] MEDS: VICON-C PO SCH (21:05)
[2017-06-16] MEDS: LIPITOR PO SCH (21:05)
[2017-06-16] MEDS: ELIQUIS PO SCH (21:06)
[2017-06-17 02:16] VITALS: BP 150/59
--- NOTE | 2017-06-17 06:47 | PROGRESS NOTE ---
DATE: 06/17/2017 SUBJECTIVE: The patient is doing okay. No major issues. She was started on Eliquis yesterday. She was having a bowel movement and tolerating p.o. although her intake is not very high. OBJECTIVE: Vital Signs: Patient is currently afebrile. Her vital signs are stable. Her O2 saturation currently is 93% on 2 L on nasal cannula General: No acute distress. Cardiovascular: Regular rate and rhythm. Lungs: Grossly clear. Abdomen: Soft, nondistended and appropriately tender. Incision is healing well. Extremities: There is some mild swelling. LABORATORY: None from this morning. ASSESSMENT AND PLAN: A 76-year-old female, status post exploratory laparotomy now with pulmonary embolism. 1. Status post exploratory laparotomy. At this time, patient is doing well from a surgical point of view. She is deemed safe to go home. From a medical point of view, she can likely be discharged. 2. Pulmonary embolism. At this time, patient is being transitioned over to Eliquis per hospitalist's recommendation. I suspect she will need 3-6 months of therapy. This is likely pulmonary embolism related to a hypercoagulable state after surgery. We will continue to follow. cc: Dom Alexander MD
[2017-06-17] MEDS: SEPTRA DS PO SCH (09:20)
[2017-06-17] MEDS: PRILOSEC PO SCH (09:20)
[2017-06-17] MEDS: NORVASC PO SCH (09:20)
[2017-06-17] MEDS: VESICARE PO SCH (09:20)
[2017-06-17] MEDS: ELIQUIS PO SCH (09:20)
[2017-06-17] MEDS: COZAAR PO SCH (09:21)
[2017-06-17] MEDS: CALTRATE 600 + D PO SCH (09:21)
[2017-06-17] MEDS: PERIDEX MT SCH (09:21)
[2017-06-17] MEDS: LASIX IV SCH (09:21)
[2017-06-17] MEDS ORDERED: PNEUMOVAX 23 IM ONE (10:45)
--- NOTE | 2017-06-17 18:23 | DISCHARGE SUMMARY ---
ADMISSION DATE: 06/10/2017 DISCHARGE DATE: 06/17/2017 CONSULTATIONS: 1. Pastor Castillo MD with Infectious Disease. 2. Dom Alexander MD with General Surgery. PERTINENT PROCEDURES: 1. Diagnostic laparoscopic conversion to exploratory laparotomy with drainage of intra-abdominal abscess with lysis of adhesions performed by Dr. Alexander. 2. Pulmonary arteriogram that showed scattered pulmonary emboli at the lower lobes and right upper lobe, small bilateral pleural effusion with compressive lower lobe atelectasis. DISCHARGE DIAGNOSES: 1. Acute hypoxemic respiratory distress secondary to pulmonary emboli and compressive atelectasis. The patient was initially on therapeutic Lovenox. She was transitioned to p.o. Eliquis which she will be discharged home on. Stable. 2. Mild fluid volume overload improved with Lasix. 3. Hypertension controlled. 4. Recurrent pelvic abscess status post exploratory laparotomy with lysis of adhesions performed by Dr. Alexander. Antibiotics per Dr. Castillo. Stable. 5. Dyslipidemia. Aware. HOSPITAL COURSE: Ms. Ocasio is a 76-year-old female who carries a past medical history of recurrent pelvic abscess, hypertension, hyperlipidemia, who was sent from Dr. Castillo' office for direct admission for recurrent abdominal abscess. She was last admitted to the hospital in March for a pelvic abscess secondary to MRSA. She received vancomycin and upon discharge she was sent home with Septra as well as a drain that was removed in Dr. Alexander's office a few days after discharge. The patient was doing fine until approximately 2 weeks ago when she started having some fever. She went to her primary care doctor's office, Dr. Conroy. She also checked with her COPIER REPAIR TECHNICIAN who recommended to contact Dr. Castillo whose recommendations were to start antibiotics and at that time she got a prescription for Septra DS. During that period of time she continued to have fevers on and off. Dr. Castillo did a CT scan which showed a small abscess and he recommended her to be a direct admission with a consultation by himself and Dr. Alexander. She did undergo diagnostic laparoscopy with conversion to exploratory laparotomy with drainage of intra-abdominal abscess and lysis of adhesions with Dr. Alexander. She was continued on her antibiotics per Dr. Castillo. She did start complaining of some shortness of breath with exertion as well as fluid building up in her hands and legs. They initially did a chest x-ray that showed no specific acute disease. They did a pulmonary arteriogram that did show scattered pulmonary emboli in the bilateral lower lobes and right upper lobe, small bilateral pleural effusions with compressive lower lobe atelectasis, and a nonspecific 7.5 mm nodule at the anterior inferior right upper lobe. The patient was started on full dose Lovenox and given a dose of Lasix. She initially was placed on bedrest until she had 24 hours of therapeutic anticoagulation with orders that she could sit up in a chair and go to the restroom. She has now been switched to p.o. Eliquis. Her shortness of breath has resolved. She is being discharged home today. Dr. Castillo escribed Septra DS b.i.d. for a total of 15 days to her pharmacy. He will see her back in the office in 2 weeks. She will call Dr. Alexander's office to make an appointment for a followup. She can follow up with Dr. Conroy in 1-2 weeks. VITAL SIGNS AT TIME OF DISCHARGE: Temperature is 98.3 degrees, heart rate 88, respirations 14, blood pressure 150/59, O2 sat 94%. DISCHARGE DIET: GI soft. DISCHARGE MEDICATIONS PER DR. BARRERA: 1. Norvasc 10 mg p.o. daily. 2. Eliquis 5 mg p.o. b.i.d. 3. Atorvastatin 40 mg p.o. at bedtime. 4. Calcium 600+ D, 1 each p.o. daily. 5. Lasix 20 mg p.o. b.i.d. 6. Boswell 10, 1 each p.o. q.4 hours p.r.n. 7. Losartan potassium 12.5 mg p.o. daily. 8. Prilosec 40 mg p.o. daily. 9. VESIcare 5 mg p.o. daily. 10. Septra DS 1 each p.o. q.12 hours. 11. Super B-complex 150 mg p.o. at bedtime. FOLLOWUP: The patient is being discharged home. She will follow up with Dr. Alexander as well as Dr. Pastor Castillo on 07/01/2017 at 9:30 a.m. The patient can return to the ED for any worsening of symptoms. DISCHARGE TIME: 30 minutes. Dictated by JUANITO Weems for Kev Barrera MD cc: Kev Barrera MD [facility]
[2017-06-17] MEDS ORDERED: LASIX PO SCH (21:00)
--- NOTE | 2017-06-22 07:15 | Extremity Venous Study ---
PROCEDURE NAME: Venous U/S Bilateral Legs - 06/15/2017 REFERRING PHYSICIAN: Dr. Alexander. INTERPRETING PHYSICIAN: Dr. Hill. TAFE LECTURER: Fidel. INDICATION: The patient is short of breath, has had a pulmonary embolus, edema in the legs. DESCRIPTION OF PROCEDURE: Bilateral lower extremity image is accomplished. The common femoral, superficial femoral, deep femoral, popliteal, posterior tibial, peroneal, and greater saphenous are imaged bilaterally. The Doppler is used to evaluate the veins for spontaneity, phasicity, respiratory excursion, and distal augmentation. There is non-compressibility of the right greater saphenous vein in the midthigh. There is evidence of an echogenicity attached to the left common femoral vein that does not allow complete compressibility. INTERPRETATION: Acute superficial venous thrombosis involving the right midthigh greater saphenous vein, and a partially-occluding deep venous thrombosis in the left common femoral vein. cc: MD Dom Barbosa MD
== END 2017-06-17 12:15 | disposition home health service (06) ==
LOC: DIRADM 14:10 → SUATTDRO 14:10 → 4N 16:01
PROVIDERS: ATTEND Internal Medicine